=== PATIENT | female | born 1950 | race Caucasian/White ===

== ENCOUNTER 2017-11-14 15:35 | Inpatient (IN) | payer MEDICARE ==
[~2017-11-14] VITALS: Ht 167.6 cm; Wt 94.9 kg
[2017-11-14 15:40] VITALS: BP 152/69; PULSE 96; RESP 16; TEMP 100.6; O2SAT 96
[2017-11-14] MEDS ORDERED: LORA-392 PO (16:17)
[2017-11-14] MEDS ORDERED: SODIUM CHLOR 0.9% 1000 ML INJ 1,000 ML IV ONE (16:45)
[2017-11-14] MEDS ORDERED: MORPHINE SULFATE 4 MG/ML INJ IV PUSH ONE ×2 (16:45→18:00)
[2017-11-14] MEDS ORDERED: ACETAMINOPHEN 325 MG TAB PO ONE (16:45)
[2017-11-14] MEDS ORDERED: ONDANSETRON HCL 4 MG/2 ML VIAL IV PUSH ONE ×2 (16:45→19:00)
--- NOTE | 2017-11-14 16:45 | PD ---
HPI Chief Complaint: Abdominal Pain Time Seen by Provider: 16:29 Travel History International Travel<30 days: No Contact w/Intl Traveler<30days: No Traveled to known affect area: No History of Present Illness HPI 67yo F with PMH of pancreatitis presents to the ED with c/o epigastric abdominal pain since 1:30 today. Said pain radiates to the back like a band. Associated with nausea. Also with intermittent chest pain that is pressure like and associated with sob. Had low grade fever when she got here. Denies any vomiting, dysuria, hematuria, diarrhea, vaginal bleeding or discharge. Pt said she has had multiple episodes of pancreatitis since they perforated her pancreatitis in 1999 during an ERCP and this feels like her pancreatitis. PFSH Past Medical History Anxiety: Yes Cardiovascular Problems: Yes (mitral valve prolapse) Pancreatitis: Yes Tetanus Vaccination: > 5 Years Influenza Vaccination: No Past Surgical History Cholecystectomy: Yes Hysterectomy: Yes Social History Alcohol Use: No Tobacco Use: No Allergies-Medications (Allergen,Severity, Reaction): Coded Allergies: Penicillins (Verified Allergy, Severe, 11/14/17) ciprofloxacin (Verified Allergy, Severe, 11/14/17) joits pain hydromorphone (Verified Allergy, Severe, Nausea/Vomiting, 11/14/17) Reported Meds & Prescriptions Reported Meds & Active Scripts Active Reported Ativan (Lorazepam) 0.5 Mg Tab 0.5 Mg PO Q8H PRN Review of Systems Except as stated in HPI: all other systems reviewed are Neg Physical Exam Narrative GENERAL: 67yo F in moderate distress. SKIN: Focused skin assessment warm/dry. HEAD: Atraumatic. Normocephalic. EYES: Pupils equal and round. No scleral icterus. No injection or drainage. ENT: No nasal bleeding or discharge. Mucous membranes pink and moist. NECK: Trachea midline. No JVD. CARDIOVASCULAR: Regular rate and rhythm. No murmur appreciated. RESPIRATORY: No accessory muscle use. Clear to auscultation. Breath sounds equal bilaterally. GASTROINTESTINAL: Abdomen soft,+TTP epigastric region > ttp RUQ. No rebound tenderness or guarding. BACK: +TTP mid back T6-7. MUSCULOSKELETAL: No obvious deformities. No clubbing. No cyanosis. No edema. NEUROLOGICAL: Awake and alert. No obvious cranial nerve deficits. Motor grossly within normal limits. Normal speech. PSYCHIATRIC: Appropriate mood and affect; insight and judgment normal. Data Data Last Documented VS Vital Signs Date Time Temp Pulse Resp B/P (MAP) Pulse Ox O2 Delivery O2 Flow Rate FiO2 11/14/17 17:17 100.3 82 16 133/61 (85) 97 Room Air Orders Orders Complete Blood Count With Diff (11/14/17 16:35) Comprehensive Metabolic Panel (11/14/17 16:35) Lipase (11/14/17 16:35) Prothrombin Time / Inr (Pt) (11/14/17 16:35) Act Partial Throm Time (Ptt) (11/14/17 16:35) Urinalysis - C+S If Indicated (11/14/17 16:35) Ct Abd/Pel W Iv Contrast(Rout) (11/14/17 16:35) Troponin I (11/14/17 16:35) Chest, Single Ap (11/14/17 ) Blood Culture (11/14/17 16:35) Lactic Acid Sepsis Protocol (11/14/17 16:35) Ondansetron Inj (Zofran Inj) (11/14/17 16:45) Morphine Inj (Morphine Inj) (11/14/17 16:45) Acetaminophen (Tylenol) (11/14/17 16:45) Sodium Chlor 0.9% 1000 Ml Inj (Ns 1000 M (11/14/17 16:45) Iohexol 350 Inj (Omnipaque 350 Inj) (11/14/17 17:39) Electrocardiogram (11/14/17 16:46) Azithromycin (Zithromax) (11/14/17 18:00) Morphine Inj (Morphine Inj) (11/14/17 18:00) Labs Laboratory Tests Test 11/14/17 16:40 White Blood Count 12.8 TH/MM3 Red Blood Count 4.23 MIL/MM3 Hemoglobin 12.9 GM/DL Hematocrit 38.0 % Mean Corpuscular Volume 89.7 FL Mean Corpuscular Hemoglobin 30.5 PG Mean Corpuscular Hemoglobin Concent 34.0 % Red Cell Distribution Width 12.9 % Platelet Count 214 TH/MM3 Mean Platelet Volume 9.5 FL Neutrophils (%) (Auto) 90.1 % Lymphocytes (%) (Auto) 4.8 % Monocytes (%) (Auto) 4.6 % Eosinophils (%) (Auto) 0.1 % Basophils (%) (Auto) 0.4 % Neutrophils # (Auto) 11.5 TH/MM3 Lymphocytes # (Auto) 0.6 TH/MM3 Monocytes # (Auto) 0.6 TH/MM3 Eosinophils # (Auto) 0.0 TH/MM3 Basophils # (Auto) 0.1 TH/MM3 CBC Comment DIFF FINAL Differential Comment Prothrombin Time 10.3 SEC Prothromb Time International Ratio 1.0 RATIO Activated Partial Thromboplast Time 24.6 SEC Blood Urea Nitrogen 13 MG/DL Creatinine 0.89 MG/DL Random Glucose 119 MG/DL Total Protein 6.7 GM/DL Albumin 3.1 GM/DL Calcium Level 8.6 MG/DL Alkaline Phosphatase 88 U/L Aspartate Amino Transf (AST/SGOT) 15 U/L Alanine Aminotransferase (ALT/SGPT) 20 U/L Total Bilirubin 0.6 MG/DL Sodium Level 140 MEQ/L Potassium Level 4.1 MEQ/L Chloride Level 108 MEQ/L Carbon Dioxide Level 26.8 MEQ/L Anion Gap 5 MEQ/L Estimat Glomerular Filtration Rate 63 ML/MIN Lactic Acid Level 1.5 mmol/L Troponin I LESS THAN 0.02 NG/ML Lipase 60728 U/L [facility] Medical Decision Making Medical Screen Exam Complete: Yes Emergency Medical Condition: Yes Interpretation(s) EKG: NSR 74bpm. Normal axis. TWI III. No significant ST segment elevation or depression. Differential Diagnosis Acute pancreatitis vs. acute cholangitis vs. complications from pancreatitis vs. ACS Narrative Course 67yo F with history of pancreatitis here with abdominal pain that feels like her pancreatitis. Pt also with atypical chest pain but will do cardiac work up since pt is 67yo. Labs reviewed, WBC 12.8. H/H normal. Lactic acid normal at 1.5. [place] [address]. CXR showed minimal bibasilar parenchymal changes. Pt said she has slight cough but not much. Pt given azithromycin. CT a/p showed prominent common duct and pancreatic duct extending into the head of pancreas without focal mass. Pt given NS IVF, morphine and zofran which helped the pain a little but it is back. Pt given another dose of morphine and zofran. Discussed with Dr. Montoya and accepted to her service. Diagnosis Primary Impression: Acute pancreatitis Qualified Codes: K85.90 - Acute pancreatitis without necrosis or infection, unspecified Admitting Information Admitting Physician Requests: Admit Kimmy Cook DO November 14, 2017 16:45
[2017-11-14 16:57] VITALS: BP 123/59; PULSE 74; RESP 18; O2SAT 97
[2017-11-14 17:04] LABS: AUTOMATED NEUTROPHIL # 11.5 TH/MM3 (1.8-7.7); BASOPHIL # 0.1 TH/MM3 (0-0.2); BASOPHIL % 0.4 % (0.0-2.0); EOSINOPHIL % 0.1 % (0.0-4.0); HEMOGLOBIN 12.9 GM/DL (11.6-15.3); LYMPH % 4.8 % (9.0-44.0); LYMPHOCYTE # 0.6 TH/MM3 (1.0-4.8); MEAN CELL VOLUME 89.7 FL (80.0-100.0); MEAN CORPUSCULAR HEMOGLOBIN 30.5 PG (27.0-34.0); MEAN PLATELET VOLUME 9.5 FL (7.0-11.0); MONO % 4.6 % (0.0-8.0); MONOCYTE # 0.6 TH/MM3 (0-0.9); NEUT % 90.1 % (16.0-70.0); PLATELET COUNT 214 TH/MM3 (150-450); RED BLOOD COUNT 4.23 MIL/MM3 (4.00-5.30); RED CELL DISTRIBUTION WIDTH 12.9 % (11.6-17.2); WHITE BLOOD COUNT 12.8 TH/MM3 (4.0-11.0)
[2017-11-14 17:14] LABS: CHLORIDE 108 MEQ/L (98-107); SODIUM (NA) 140 MEQ/L (136-145)
[2017-11-14 17:17] VITALS: BP 133/61; PULSE 82; RESP 16; TEMP 100.3; O2SAT 97
[2017-11-14 17:17] LABS: PROTHROMBIN TIME - PATIENT 10.3 SEC (9.8-11.6)
--- NOTE | 2017-11-14 17:17 | RADRPT ---
EXAM DATE/TIME: 11/14/2017 16:56 [facility] COMPARISON: No previous studies available for comparison. INDICATIONS : Chest pain. MEDICAL HISTORY : None. SURGICAL HISTORY : None. ENCOUNTER: Initial ACUITY: 1 day PAIN SCORE: 9/10 LOCATION: Bilateral chest FINDINGS: Minimal bibasilar or parenchymal changes. The heart and pulmonary vascularity are normal. The portion of the bony skeleton visualized is unremarkable. CONCLUSION: Minimal bibasilar parenchymal changes. Moy Johnson MD FACR on November 14, 2017 at 17:15 Board Certified Radiologist. This report was verified electronically.
[2017-11-14 17:18] LABS: ALBUMIN 3.1 GM/DL (3.4-5.0); BICARBONATE 26.8 MEQ/L (21.0-32.0); CALCIUM 8.6 MG/DL (8.5-10.1); GLUCOSE,RANDOM 119 MG/DL (74-106)
[2017-11-14 17:19] LABS: BLOOD UREA NITROGEN 13 MG/DL (7-18)
[2017-11-14 17:21] LABS: ALT (GPT) 20 U/L (10-53); AST (GOT) 15 U/L (15-37); CREATININE 0.89 MG/DL (0.50-1.00); GLOMERULAR FILTRATION RATE 63 ML/MIN (>89)
[2017-11-14 17:23] LABS: TOTAL BILIRUBIN ADULT 0.6 MG/DL (0.2-1.0); TOTAL PROTEIN 6.7 GM/DL (6.4-8.2)
[2017-11-14 17:24] LABS: ALKALINE PHOSPHATASE 88 U/L (45-117)
[2017-11-14 17:27] LABS: TROPONIN I LESS THAN 0.02 NG/ML (0.02-0.05)
[2017-11-14] MEDS ORDERED: IOHEXOL 350 MG/ML 10 ML VIAL (for RAD DIAG) IVCONTRAST ONE (17:39)
--- NOTE | 2017-11-14 17:47 | RADRPT ---
EXAM DATE/TIME: 11/14/2017 17:29 [facility] COMPARISON: No previous studies available for comparison. INDICATIONS : Epigastric pain. IV CONTRAST: 95 cc Omnipaque 350 (iohexol) IV ORAL CONTRAST: No oral contrast ingested. RADIATION DOSE: 14.95 CTDIvol (mGy) MEDICAL HISTORY : Pancreatitis. Mitral valve prolapse. SURGICAL HISTORY : Cholecystectomy. Hysterectomy. ENCOUNTER: Initial ACUITY: 1 day PAIN SCALE: 6/10 LOCATION: upper quadrant TECHNIQUE: Volumetric scanning of the abdomen and pelvis was performed. Using automated exposure control and ad justment of the mA and/or kV according to patient size, radiation dose was kept as low as reasonably achievable to obtain optimal diagnostic quality images. DICOM format image data is available electro nically for review and comparison. FINDINGS: The lower lungs are clear. Mild fatty replacement of the liver with minimal intrahepatic ductal dilatation and prominent common duct measuring 2 cm. Mild prominent pancreatic duct without definite mass in the head of the pancrea s. Spleen and adrenal glands are unremarkable Symmetrical renal function There is no ascites or adenopathy The pelvis multiple diverticula are evident without diverticulitis or inflammatory changes. There is no ascites or adenopathy. Bone windows reveal only degenerative changes. CONCLUSION: Prominent common duct and pancreatic duct extending into the head of pancreas without focal mass. Co rrelation is suggested I do not see an etiology for the epigastric pain Moy Johnson MD FACR on November 14, 2017 at 17:43 Board Certified Radiologist. This report was verified electronically.
[2017-11-14] MEDS ORDERED: AZITHROMYCIN 250 MG TAB PO ONE (18:00)
[2017-11-14] MEDS ORDERED: SODIUM CHLORIDE 0.9% FLUSH 10 ML FLUSH IV FLUSH PRN (18:15)
[2017-11-14 18:25] VITALS: BP 125/64; PULSE 66; RESP 18; TEMP 99; O2SAT 97
[2017-11-14] MEDS: KETOROLAC TROMETHAMINE 30 MG/ML (IVP) VIAL IVP PRN (19:40)
[2017-11-14] MEDS: LACTATED RINGER'S 1000 ML INJ 1,000 ML IV SCH (19:40)
[2017-11-14 19:55] VITALS: BP 126/61
[2017-11-14 20:00] VITALS: BP 137/90; PULSE 58; RESP 16; TEMP 98; O2SAT 96
[2017-11-14] MEDS: ENOXAPARIN SODIUM 40 MG/0.4 ML SYRINGE SQ SCH (20:31)
[2017-11-14] MEDS: SODIUM CHLORIDE 0.9% FLUSH 10 ML FLUSH IV FLUSH SCH (20:33)
[2017-11-15] VITALS (7 sets, daily range): BP systolic 105–118; BP diastolic 50–57; PULSE 67–103; RESP 16–20; TEMP 98.6–102.2; O2SAT 75–95
[2017-11-15] MEDS: KETOROLAC TROMETHAMINE 30 MG/ML (IVP) VIAL IVP PRN ×4 (00:50→21:41)
[2017-11-15] MEDS: LACTATED RINGER'S 1000 ML INJ 1,000 ML IV SCH ×4 (00:51→21:44)
[2017-11-15] MEDS: ONDANSETRON HCL 4 MG/2 ML VIAL IV PUSH PRN ×3 (00:51→17:14)
[2017-11-15 07:00] LABS: AUTOMATED NEUTROPHIL # 10.3 TH/MM3 (1.8-7.7); BASOPHIL % 0.1 % (0.0-2.0); HEMATOCRIT 34.2 % (35.0-46.0); HEMOGLOBIN 11.4 GM/DL (11.6-15.3); LYMPH % 5.2 % (9.0-44.0); LYMPHOCYTE # 0.6 TH/MM3 (1.0-4.8); MEAN CELL VOLUME 89.6 FL (80.0-100.0); MEAN CORPUSCULAR HEMOGLOBIN 29.8 PG (27.0-34.0); MEAN CORPUSCULAR HGB CONC 33.2 % (32.0-36.0); MEAN PLATELET VOLUME 9.7 FL (7.0-11.0); MONO % 6.2 % (0.0-8.0); MONOCYTE # 0.7 TH/MM3 (0-0.9); NEUT % 88.5 % (16.0-70.0); PLATELET COUNT 181 TH/MM3 (150-450); RED BLOOD COUNT 3.82 MIL/MM3 (4.00-5.30); RED CELL DISTRIBUTION WIDTH 12.9 % (11.6-17.2); WHITE BLOOD COUNT 11.6 TH/MM3 (4.0-11.0)
[2017-11-15] MEDS: SODIUM CHLORIDE 0.9% FLUSH 10 ML FLUSH IV FLUSH SCH ×2 (07:54→21:00)
[2017-11-15] MEDS ORDERED: MORPHINE SULFATE 2 MG/ML SYRINGE IV PUSH PRN (08:00)
--- NOTE | 2017-11-15 08:14 | HHI.HP ---
[facility] Service [place] [facility] Primary Care Physician Non-Staff Admission Diagnosis Acute pancreatitis Diagnoses: (1) Acute pancreatitis Chief Complaint: Abdominal pain Travel History International Travel<30 Days: No Contact w/Intl Traveler <30 Da: No Traveled to Known Affected Are: No Sepsis Criteria SIRS Criteria (2 or more): Temp > 100.9 or < 96.8, Heart rate over 90, WBC > 02615, < 4000 or > 10% bands Sepsis Criteria (SIRS+source): Infect source susp/known Criteria Outcome: Meets sepsis criteria History of Present Illness This is a pleasant 67-year-old female patient with a known medical history of pancreatitis who presented to the ED with complaints of abdominal pain, nausea and vomiting. Patient states her symptoms started yesterday afternoon with her abdominal pain in her left upper quadrant and bandlike across her abdomen as well as radiation up her midsternal chest. Patient does admit to subjective fevers, although she did not check how high it was. Admits to chills as well as intermittent shortness of breath. Does admit to taking Tylenol and Ativan for her symptoms which mildly improved. Patient denies any headache, diarrhea or dysuria. Patient does admit to multiple episodes of pancreatitis several years ago including a perforation in 1999 during the ERCP. Patient's last episode was 2 years ago. Does not follow with a language arts teacher, patient is from [place]. PCP is Dr. Garcia, patient is from [place] [id number]. Supposedly she did have a recent diagnosis of UTI, was never given antibiotics and it cleared on its own reportedly. Patient denies any recent alcohol use, states she did have a birthday alliance party and drank 2 drinks over the weekends. Does not drink frequently, only on special occasions. Review of Systems Constitutional: COMPLAINS OF: Diaphoretic episodes, Fatigue, Fever, Chills, DENIES: Dizziness Eyes: DENIES: Blurred vision, Diplopia Respiratory: COMPLAINS OF: Shortness of breath, DENIES: Cough, Sputum production Past Family Social History Past Medical History History of pancreatitis Anxiety History of mitral valve prolapse Past Surgical History Hysterectomy Cholecystectomy History of right knee repair Reported Medications Active Reported Ativan (Lorazepam) 0.5 Mg Tab 0.5 Mg PO Q8H PRN Allergies: Coded Allergies: Penicillins (Verified Allergy, Severe, 11/14/17) ciprofloxacin (Verified Allergy, Severe, 11/14/17) joits pain hydromorphone (Verified Allergy, Severe, Nausea/Vomiting, 11/14/17) Active Ordered Medications Current Medications Medications (Trade) Dose Ordered Sig/Katerina Route Start Time Stop Time Status Last Admin Lactated Ringer's 1,000 ml @ 125 mls/hr Q8H IV 11/14/17 18:08 11/15/17 00:51 (NS Flush) 2 ml UNSCH PRN IV FLUSH 11/14/17 18:15 (NS Flush) 2 ml BID IV FLUSH 11/14/17 21:00 (Toradol Inj) 30 mg Q6H PRN IVP 11/14/17 18:15 11/19/17 18:14 11/15/17 06:55 (Zofran Inj) 4 mg Q6H PRN IV PUSH 11/14/17 18:15 11/15/17 09:54 (Lovenox Inj) 40 mg Q24H SQ 11/14/17 20:00 11/14/17 20:31 (Tylenol) 650 mg Q4H PRN PO 11/15/17 08:00 11/15/17 08:31 (Morphine Inj) 2 mg Q4H PRN IV PUSH 11/15/17 09:30 11/15/17 09:54 Family History Paternal medical history significant for lung cancer. Mother had CHF and kidney failure. Social History Denies any tobacco abuse. Does admit to occasional alcohol use for special occasions, denies any illicit drug use. Physical Exam Vital Signs Vital Signs Date Time Temp Pulse Resp B/P (MAP) Pulse Ox O2 Delivery O2 Flow Rate FiO2 11/15/17 08:00 102.2 103 19 107/54 (71) 94 11/15/17 00:00 98.6 67 16 118/57 (77) 75 11/14/17 20:00 98.0 58 16 137/90 (106) 96 11/14/17 20:00 96 21 11/14/17 19:55 80 16 126/61 (82) 96 11/14/17 18:25 99.0 66 18 125/64 (84) 97 Room Air 11/14/17 18:20 17 11/14/17 17:17 100.3 82 16 133/61 (85) 97 Room Air 11/14/17 16:59 16 11/14/17 16:57 74 18 123/59 (80) 97 Room Air 11/14/17 15:40 100.6 96 16 152/69 (96) 96 Physical Exam GENERAL: Well-developed, well-nourished patient in NAD. SKIN: Warm and dry. No rash. HEAD: Normocephalic. Atraumatic. EYES: Pupils equal and round. No scleral icterus. No injection or drainage. ENT: No nasal bleeding or discharge. Mucous membranes pink and moist. NECK: Supple. Trachea midline. CARDIOVASCULAR: Regular rate and rhythm. S1, S2 noted. No murmur appreciated. No chest pain to palpation. RESPIRATORY: No accessory muscle use. Clear to auscultation. Breath sounds equal bilaterally. GASTROINTESTINAL: Abdomen soft, nondistended. Hypoactive bowel sounds x4. Mild tenderness to upper left quadrant to palpation. MUSCULOSKELETAL: No obvious deformities. Extremities without clubbing, cyanosis , or edema. NEUROLOGICAL: Awake and alert. No obvious cranial nerve deficits. Motor grossly within normal limits. 5/5 muscle strength in bilateral upper and lower extremities. Normal speech. PSYCHIATRIC: Appropriate mood and affect; insight and judgment normal. Laboratory Laboratory Tests Test 11/14/17 16:40 11/15/17 06:15 White Blood Count 12.8 11.6 Red Blood Count 4.23 3.82 Hemoglobin 12.9 11.4 Hematocrit 38.0 34.2 Mean Corpuscular Volume 89.7 89.6 Mean Corpuscular Hemoglobin 30.5 29.8 Mean Corpuscular Hemoglobin Concent 34.0 33.2 Red Cell Distribution Width 12.9 12.9 Platelet Count 214 181 Mean Platelet Volume 9.5 9.7 Neutrophils (%) (Auto) 90.1 88.5 Lymphocytes (%) (Auto) 4.8 5.2 Monocytes (%) (Auto) 4.6 6.2 Eosinophils (%) (Auto) 0.1 0.0 Basophils (%) (Auto) 0.4 0.1 Neutrophils # (Auto) 11.5 10.3 Lymphocytes # (Auto) 0.6 0.6 Monocytes # (Auto) 0.6 0.7 Eosinophils # (Auto) 0.0 0.0 Basophils # (Auto) 0.1 0.0 CBC Comment DIFF FINAL AUTO DIFF Differential Comment AUTO DIFF CONFIRMED Prothrombin Time 10.3 Prothromb Time International Ratio 1.0 Activated Partial Thromboplast Time 24.6 Blood Urea Nitrogen 13 Creatinine 0.89 Random Glucose 119 Total Protein 6.7 Albumin 3.1 Calcium Level 8.6 Alkaline Phosphatase 88 Aspartate Amino Transf (AST/SGOT) 15 Alanine Aminotransferase (ALT/SGPT) 20 Total Bilirubin 0.6 Sodium Level 140 Potassium Level 4.1 Chloride Level 108 Carbon Dioxide Level 26.8 Anion Gap 5 Estimat Glomerular Filtration Rate 63 Lactic Acid Level 1.5 Troponin I LESS THAN 0.02 Triglycerides Level 111 Lipase 05068 Platelet Estimate NORMAL Platelet Morphology Comment NORMAL Date/Time Source Procedure Growth Status 11/14/17 16:40 Blood Peripheral Aerobic Blood Culture Pending Received 11/14/17 16:40 Blood Peripheral Anaerobic Blood Culture Pending Received Result Diagram: 11/15/17 0615 11/14/17 1640 Imaging Last Impressions Abdomen/Pelvis CT 11/14/17 1635 Signed Impressions: Service Date/Time: Tuesday, November 14, 2017 17:29 - CONCLUSION: Prominent common duct and pancreatic duct extending into the head of pancreas without focal mass. Correlation is suggested I do not see an etiology for the epigastric pain Moy Johnson MD FACR Chest X-Ray 11/14/17 0000 Signed Impressions: Service Date/Time: Tuesday, November 14, 2017 16:56 - CONCLUSION: Minimal bibasilar parenchymal changes. Moy Johnson MD FACR Septic Shock Reassessment Septic shock perfusion: reassessment completed Caprini VTE Risk Assessment Caprini VTE Risk Assessment: Mod/High Risk (score >= 2) Caprini Risk Assessment Model Point Value = 1 Point Value = 2 Point Value = 3 Point Value = 5 Age 41-60 Minor surgery BMI > 25 kg/m2 Swollen legs Varicose veins or History of unexplained or recurrent spontaneous Oral contraceptives or hormone replacement Sepsis (< 1 month) Serious lung disease, including pneumonia (< 1 month) Abnormal pulmonary function Acute myocardial infarction Congestive heart failure (< 1 month) History of inflammatory bowel disease Medical patient at bed rest Age 61-74 Arthroscopic surgery Major open surgery (> 45 min) Laparoscopic surgery (> 45 min) Malignancy Confined to bed (> 72 hours) Immobilizing plaster cast Central venous access Age >= 75 History of VTE Family history of VTE Factor V Leiden Prothrombin [id number] Lupus anticoagulant Anticardiolipin antibodies Elevated serum homocysteine Heparin-induced thrombocytopenia Other congenital or acquired thrombophilia Stroke (< 1 month) Elective arthroplasty Hip, pelvis, or leg fracture Acute spinal cord injury (< 1 month) Prophylaxis Regimen Total Risk Factor Score Risk Level Prophylaxis Regimen 0-1 Low Early ambulation 2 Moderate Order ONE of the following: *Sequential Compression Device (SCD) *Heparin 5000 units SQ BID 3-4 Higher Order ONE of the following medications: *Heparin 5000 units SQ TID *Enoxaparin/Lovenox 40 mg SQ daily (WT < 150 kg, CrCl > 30 mL/min) *Enoxaparin/Lovenox 30 mg SQ daily (WT < 150 kg, CrCl > 10-29 mL/min) *Enoxaparin/Lovenox 30 mg SQ BID (WT < 150 kg, CrCl > 30 mL/min) AND/OR *Sequential Compression Device (SCD) 5 or more Highest Order ONE of the following medications: *Heparin 5000 units SQ TID (Preferred with Epidurals) *Enoxaparin/Lovenox 40 mg SQ daily (WT < 150 kg, CrCl > 30 mL/min) *Enoxaparin/Lovenox 30 mg SQ daily (WT < 150 kg, CrCl > 10-29 mL/min) *Enoxaparin/Lovenox 30 mg SQ BID (WT < 150 kg, CrCl > 30 mL/min) AND *Sequential Compression Device (SCD) Assessment and Plan Problem List: (1) Acute pancreatitis ICD Code: K85.90 - Acute pancreatitis without necrosis or infection, unspecified Status: Acute Plan: Abdominal pelvis CT reviewed showing no focal mass with the prominent common duct and pancreatic duct. Lipase 13,000 on presentation. With associated abdominal pain, nausea and vomiting. Lipase trending down. Pain is still present, allergic to hydromorphone, morphine IV available for breakthrough pain. Toradol scheduled. Continue IV fluids. Attempt clear liquid diet as tolerated. (2) Pneumonia ICD Code: J18.9 - Pneumonia, unspecified organism Plan: Patient with fever 102.2. Blood cultures pending follow. With leukocytosis mild left shift. Meet sepsis criteria suspect secondary to pneumonia. We will also order UA, follow. Lactic acid 1.5. Acetaminophen available fever. Was given 1 L NS bolus in ED. Continue IV fluids. Start on azithromycin and ceftriaxone. Supplemental O2 as needed, patient stable on room air. DVT prophylaxis: SCDs. Lovenox. Physician Certification 2 Midnight Certification Type: Admission for Inpatient Services Order for Inpatient Services The services are ordered in accordance with Medicare regulations or non- Medicare payer requirements, as applicable. In the case of services not specified as inpatient-only, they are appropriately provided as inpatient services in accordance with the 2-midnight benchmark. Estimated LOS (days): 3 3 days is the estimated time the patient will need to remain in the hospital, assuming treatment plan goals are met and no additional complications. Post-Hospital Plan: Home Problem Qualifiers (1) Acute pancreatitis: Qualified Codes: K85.90 - Acute pancreatitis without necrosis or infection, unspecified Trinity Cooney November 15, 2017 08:14
[2017-11-15] MEDS: ACETAMINOPHEN 325 MG TAB PO PRN (08:31)
[2017-11-15] MEDS: MORPHINE SULFATE 4 MG/ML INJ IV PUSH PRN ×2 (09:54→17:46)
[2017-11-15] MEDS: cefTRIAXone INJ 1,000 MG in SODIUM CHLORIDE 0.9% INJ 100 ML IV SCH (12:59)
[2017-11-15 13:37] LABS: BLOOD, URINE NEG (NEG); GLUCOSE,URINE NEG (NEG); KETONE, URINE TRACE mg/dL (NEG); NITRITE,URINE NEG (NEG); PH, URINE 5.5 (5.0-8.5); URINE COLOR YELLOW (YELLW/STRAW); URINE LEUKOCYTE ESTERASE NEG (NEG)
[2017-11-15 13:45] LABS: BILIRUBIN, URINE NEG (NEG)
[2017-11-15 13:49] LABS: AMORPHOUS SEDIMENT, URINE FEW; SQUAMOUS EPITHELIAL CELL URINE 0-3 /hpf (0-5); WBC, URINE 0-2 /hpf (0-5)
--- NOTE | 2017-11-15 14:01 | EKG ---
Date Performed: 11/14/2017 Time Performed: 16:46:10 PTAGE: 67 years EKG: Sinus rhythm LOW QRS VOLTAGE IN PRECORDIAL LEADS BORDERLINE ECG NO PREVIOUS TRACING DOCTOR: Nazario Nance Interpretating Date/Time 11/15/2017 14:00:24
[2017-11-15] MEDS: RESP: ALBUTEROL 2.5 MG/IPRATROPIUM 0.5 MG NEB (SCH) NEB ×2 (14:27→19:23)
[2017-11-15] MEDS: AZITHROMYCIN INJ 500 MG in SODIUM CHLOR 0.9% 250 ML INJ 250 ML IV SCH (17:13)
[2017-11-15] MEDS: ENOXAPARIN SODIUM 40 MG/0.4 ML SYRINGE SQ SCH (21:40)
[2017-11-16] VITALS (11 sets, daily range): BP systolic 102–135; BP diastolic 52–64; PULSE 82–111; RESP 16–21; TEMP 98.4–101.4; O2SAT 90–98
[2017-11-16] MEDS: ACETAMINOPHEN 325 MG TAB PO PRN (04:09)
[2017-11-16] MEDS: KETOROLAC TROMETHAMINE 30 MG/ML (IVP) VIAL IVP PRN ×3 (04:10→16:22)
[2017-11-16] MEDS: RESP: ALBUTEROL 2.5 MG/IPRATROPIUM 0.5 MG NEB (SCH) NEB ×3 (07:22→19:38)
[2017-11-16 08:24] LABS: AUTOMATED NEUTROPHIL # 13.7 TH/MM3 (1.8-7.7); BASOPHIL % 0.3 % (0.0-2.0); EOSINOPHIL % 0.1 % (0.0-4.0); HEMATOCRIT 31.5 % (35.0-46.0); HEMOGLOBIN 10.3 GM/DL (11.6-15.3); LYMPH % 5.5 % (9.0-44.0); LYMPHOCYTE # 0.8 TH/MM3 (1.0-4.8); MEAN CORPUSCULAR HEMOGLOBIN 29.5 PG (27.0-34.0); MEAN CORPUSCULAR HGB CONC 32.8 % (32.0-36.0); MEAN PLATELET VOLUME 10.2 FL (7.0-11.0); MONO % 5.9 % (0.0-8.0); MONOCYTE # 0.9 TH/MM3 (0-0.9); NEUT % 88.2 % (16.0-70.0); PLATELET COUNT 165 TH/MM3 (150-450); RED CELL DISTRIBUTION WIDTH 12.9 % (11.6-17.2); WHITE BLOOD COUNT 15.4 TH/MM3 (4.0-11.0)
[2017-11-16 08:39] LABS: CALCIUM 8.1 MG/DL (8.5-10.1)
[2017-11-16 08:40] LABS: BICARBONATE 26.4 MEQ/L (21.0-32.0)
[2017-11-16 08:43] LABS: CREATININE 1.2 MG/DL (0.50-1.00)
[2017-11-16] MEDS: SODIUM CHLORIDE 0.9% FLUSH 10 ML FLUSH IV FLUSH SCH ×2 (09:05→21:38)
[2017-11-16] MEDS: LACTATED RINGER'S 1000 ML INJ 1,000 ML IV SCH ×3 (09:16→23:18)
[2017-11-16 09:20] LABS: TOXIC GRANULATION 1+ (NORMAL)
--- NOTE | 2017-11-16 09:48 | HHI.PR ---
Subjective Remarks Follow-up acute pancreatitis pneumonia. Patient seen and examined, lying in bed with continued complaints of pain. Patient is afraid to take IV narcotics, states she is afraid to get addicted. Patient encouraged to have ordered medication if needed. Will assess response. Continued fevers overnight TMAX 101.4. Acetaminophen given. Blood cultures negative to date. Objective Vitals Vital Signs Date Time Temp Pulse Resp B/P (MAP) Pulse Ox O2 Delivery O2 Flow Rate FiO2 11/16/17 07:24 92 21 11/16/17 04:00 101.4 103 21 113/59 (77) 90 11/16/17 00:00 100.1 95 18 103/55 (71) 90 11/15/17 20:00 100.9 86 20 109/52 (71) 93 11/15/17 19:23 93 21 11/15/17 15:53 99.1 76 19 105/50 (68) 95 11/15/17 12:00 100.0 89 20 106/56 (73) 90 11/15/17 11:34 93 I/O 11/15/17 11/15/17 11/15/17 11/16/17 11/16/17 11/16/17 07:00 15:00 23:00 07:00 15:00 23:00 Intake Total 0 ml 1200 ml 1000 ml 480 ml Output Total 550 ml Balance 0 ml 1200 ml 450 ml 480 ml Intake Oral 0 ml 0 ml 750 ml 480 ml IV Total 1200 ml 250 ml Output Urine Total 550 ml # Voids 2 3 # Bowel Movements 0 Result Diagram: 11/16/17 0635 11/16/17 0635 Imaging Last Impressions Liver Ultrasound 11/16/17 0000 Signed Impressions: Service Date/Time: Thursday, November 16, 2017 10:37 - CONCLUSION: 1. Dilated main pancreatic duct measuring up to 9 mm. No obstructing mass is clearly seen on today's examination or the prior CT but the duct dilatation extends to the pancreatic head. Consider further evaluation for an occult mass in the pancreatic head once condition permits. Noninvasively this could be obtained with pancreas protocol MRI with and without intravenous contrast to include MRCP images. 2. Dilated common bile duct in this patient post cholecystectomy. The common duct does taper distally on the recent CT without a distal obstructing process identified. 3. There is trace perihepatic free fluid and a small left pleural effusion is visualized. Rashel Lopez MD Chest CT 11/16/17 0000 Signed Impressions: Service Date/Time: Thursday, November 16, 2017 11:33 - CONCLUSION: 1. Moderate severity atelectasis/consolidation at the dependent portions of lower lobes and right middle lobe. 2. Small pleural effusions. 3. Increased peripancreatic edema. Consistent with acute pancreatitis Rex Galeas MD Abdomen/Pelvis CT 11/14/17 1635 Signed Impressions: Service Date/Time: Tuesday, November 14, 2017 17:29 - CONCLUSION: Prominent common duct and pancreatic duct extending into the head of pancreas without focal mass. Correlation is suggested I do not see an etiology for the epigastric pain Moy Johnson MD FACR Chest X-Ray 11/14/17 0000 Signed Impressions: Service Date/Time: Tuesday, November 14, 2017 16:56 - CONCLUSION: Minimal bibasilar parenchymal changes. Moy Johnson MD FACR Objective Remarks GENERAL: Well-developed, well-nourished patient with complaint of diffuse abdominal pain mindi in midepigastric area. SKIN: Warm and dry. No rash. HEAD: Normocephalic. Atraumatic. EYES: Pupils equal and round. No scleral icterus. No injection or drainage. ENT: No nasal bleeding or discharge. Mucous membranes pink and moist. NECK: Supple. Trachea midline. CARDIOVASCULAR: Regular rate and rhythm. S1, S2 noted. No murmur appreciated. RESPIRATORY: No accessory muscle use. Clear to auscultation. Breath sounds equal bilaterally. GASTROINTESTINAL: Abdomen soft, nondistended. Normoactive bowel sounds x4. Tender to palpation in upper right and left quadrants. MUSCULOSKELETAL: No obvious deformities. Extremities without clubbing, cyanosis , or edema. NEUROLOGICAL: Awake and alert. No obvious cranial nerve deficits. Motor grossly within normal limits. 5/5 muscle strength in bilateral upper and lower extremities. Normal speech. PSYCHIATRIC: Appropriate mood and affect; insight and judgment normal. A/P Problem List: (1) Acute pancreatitis ICD Code: K85.90 - Acute pancreatitis without necrosis or infection, unspecified Status: Acute Plan: With associated abdominal pain, nausea and vomiting. Abdominal pelvis CT reviewed showing no focal mass with the prominent common duct and pancreatic duct. Lipase 13,000 on presentation, trending down. Pain is still present, allergic to hydromorphone, morphine IV available for breakthrough pain. Toradol scheduled. Continue IV fluids. Patient did not tolerate clear liquid diet, keep NPO for now. (2) Pneumonia ICD Code: J18.9 - Pneumonia, unspecified organism Plan: Patient with fever 102.2. TMAX 101.4 overnight. Blood cultures negative to date. Meets sepsis criteria (febrile, tachycardia and leukocytosis) suspect secondary to pneumonia. UA negative. Lactic acid 1.5. Acetaminophen available fever. Was given 1 L NS bolus in ED. Continue IV fluids. Started on azithromycin and ceftriaxone. Change ceftriaxone to cefepime for more gram negative coverage. Consult GI for further input and recommendations. Supplemental O2 as needed, patient stable on room air. DVT prophylaxis: SCDs. Lovenox. Problem Qualifiers (1) Acute pancreatitis: Qualified Codes: K85.90 - Acute pancreatitis without necrosis or infection, unspecified Trinity Cooney November 16, 2017 09:48
--- NOTE | 2017-11-16 12:03 | RADRPT ---
EXAM DATE/TIME: 11/16/2017 10:37 [facility] COMPARISON: CT ABDOMEN & PELVIS W CONTRAST, November 14, 2017, 17:29. INDICATIONS : Pain. MEDICAL HISTORY : Pancreatitis. Mitral valve prolapse. SURGICAL HISTORY : Hysterectomy. Cholecystectomy. ENCOUNTER: Subsequent ACUITY: 2 days PAIN SCORE: 8/10 LOCATION: Bilateral upper quadrant MEASUREMENTS: LIVER: 16.7 cm length COMMON DUCT: 11 mm RIGHT KIDNEY: 10.2 x 5.8 x 5.4 cm SPLEEN: 9.1 cm length FINDINGS: LIVER: Normal echotexture without focal lesion. There is trace perihepatic free fluid. COMMON DUCT: No intraluminal mass or stone visualized. GALLBLADDER: Surgically absent. PANCREAS: There is dilatation of the main pancreatic duct measuring up to 9 mm. Prior study demonstrated the du ct dilatation to extend to the pancreatic head and peripancreatic inflammatory changes were present. RIGHT KIDNEY: No hydronephrosis, stone or mass. SPLEEN: No focal lesion. There is a left pleural effusion. CONCLUSION: 1. Dilated main pancreatic duct measuring up to 9 mm. No obstructing mass is clearly seen on today's examination or the prior CT but the duct dilatation extends to the pancreatic head. Consider further evaluation for an occult mass in the pancreatic head once condition permits. Noninvasively this could be obtained with pancreas protocol MRI with and without intravenous contrast to include MRCP images. 2. Dilated common bile duct in this patient post cholecystectomy. The common duct does taper distally on the recent CT without a distal obstructing process identified. 3. There is trace perihepatic free fluid and a small left pleural effusion is visualized. Rashel Lopez MD on November 16, 2017 at 11:45 Board Certified Radiologist. This report was verified electronically.
[2017-11-16] MEDS ORDERED: IOHEXOL 350 MG/ML 10 ML VIAL (for RAD DIAG) IVCONTRAST ONE (12:41)
--- NOTE | 2017-11-16 13:17 | RADRPT ---
EXAM DATE/TIME: 11/16/2017 11:33 [facility] COMPARISON: CT ABDOMEN & PELVIS W CONTRAST, November 14, 2017, 17:29. CHEST SINGLE AP, November 14, 2017, 16:56. INDICATIONS : Abnormal chest xray. IV CONTRAST: 65 cc Omnipaque 350 (iohexol) IV RADIATION DOSE: 12.68 CTDIvol (mGy) MEDICAL HISTORY : Pancreatitis. Mitral valve prolapse. SURGICAL HISTORY : Cholecystectomy. Hysterectomy. ENCOUNTER: Subsequent ACUITY: 2 days PAIN SCALE: 0/10 LOCATION: chest TECHNIQUE: Volumetric scanning of the chest was performed. Using automated exposure control and adjustment of t he mA and/or kV according to patient size, radiation dose was kept as low as reasonably achievable to obtain optimal diagnostic quality images. DICOM format image data is available electronically for review and comparison. Follow-up recommendations for detected pulmonary nodules are based at a minimum on nodule size and pa tient risk factors according to Fleischner Society Guidelines. FINDINGS: LUNGS: Moderate severity confluent parenchymal opacity within portions of the lower lobes and involving the right middle lobe posteriorly. Findings indicate atelectasis/consolidation. PLEURA: Small bilateral pleural effusions. MEDIASTINUM: Coronary artery calcifications. Thoracic aorta diameter within normal limits. No enlarged mediastinal lymph nodes. AXILLAE: Within normal limits. No lymphadenopathy. SKELETAL: Within normal limits for patient age. MISCELLANEOUS: Hepatic steatosis. Increased peripancreatic edema. Consistent with acute pancreatitis. CONCLUSION: 1. Moderate severity atelectasis/consolidation at the dependent portions of lower lobes and right mid dle lobe. 2. Small pleural effusions. 3. Increased peripancreatic edema. Consistent with acute pancreatitis Rex Galeas MD on November 16, 2017 at 13:11 Board Certified Radiologist. This report was verified electronically.
[2017-11-16] MEDS: MORPHINE SULFATE 4 MG/ML INJ IV PUSH PRN ×2 (13:25→18:46)
[2017-11-16] MEDS: cefTRIAXone INJ 1,000 MG in SODIUM CHLORIDE 0.9% INJ 100 ML IV SCH (13:25)
[2017-11-16] MEDS: CEFEPIME INJ 2,000 MG in SODIUM CHLORIDE 0.9% INJ 100 ML IV SCH ×2 (14:23→21:38)
[2017-11-16] MEDS: AZITHROMYCIN INJ 500 MG in SODIUM CHLOR 0.9% 250 ML INJ 250 ML IV SCH (18:03)
--- NOTE | 2017-11-16 19:30 | MB ---
cc: Fabby Wu MD DATE: 11/16/2017 REFERRING PHYSICIAN: Tom Pope DO REASON FOR CONSULTATION: Pancreatitis. HISTORY OF PRESENT ILLNESS: Ms. Cabrera is a pleasant 67-year-old lady who came to the emergency room with complaints of abdominal pain, nausea and vomiting, workup suggesting pancreatitis. The patient stated she had the first attack of pancreatitis was back in 1999 after ERCP with ,what appeared to be a sphincter of Oddi manometry. She stated that she initially had a cholecystectomy. Postop, she continued to have abdominal discomfort and apparently elevated liver enzymes. At that time, recommendation to have an ERCP with sphincter of Oddi manometry was made. The patient had ERCP and apparently, she had a perforation during the procedure. She had post-ERCP pancreatitis and spent approximately 2 months in the hospital ,recovering from it. Since 1999, she had repeated episode of pancreatitis every 1-2 years. She refused to have a repeat ERCP. She may have had an endoscopic ultrasound, but she is not quite sure. She had seen a specialist at a tertiary center. She was recommended stent placement, but she refused due to fear of possible recurrent pancreatitis. She does not have the records with her. We will try to obtain previous records. Her last attack of pancreatitis was 2 years ago. She stated that this current one is the worst episode she ever had. She denies any alcohol or use of any other medications. She had a UTI a few weeks ago, but she was never given an antibiotic. She denies any fever, chills, weight loss or weight gain. Unclear if she was ever tested for autoimmune pancreatitis or if she ever had genetic testing for inherited pancreatitis. PAST MEDICAL HISTORY: Pancreatitis, anxiety, mitral valve prolapse. PAST SURGICAL HISTORY: Cholecystectomy, surgery was performed for dysfunctional gallbladder, hysterectomy, right knee repair. MEDICATIONS: Ativan. ALLERGIES: PENICILLIN, CIPRO, HYDROMORPHONE. FAMILY HISTORY: No family history of colon cancer or any other GI pathology. REVIEW OF SYSTEMS: CONSTITUTIONAL: She denies any fever, chills, weight gain or weight loss. ENT: No alteration in baseline hearing or visual acuity. PULMONARY: Denies any chest pain, shortness of breath. GASTROINTESTINAL: As above. GENITOURINARY: Denies dysuria, hematuria. HEMATOLOGICAL: No history of anemia or bleeding disorder. SKIN: No alteration of baseline skin lesion. NEUROLOGIC: No history of TIA or CVA kind of symptoms. PHYSICAL EXAMINATION: GENERAL: She is sitting comfortable in bed, in no acute distress. VITAL SIGNS: Temperature 99.7, pulse 60, blood pressure 133/64, pulse oximetry 93. HEENT: PERRLA. NECK: No JVD. No lymphadenopathy. CHEST: Clear to auscultation and palpation. CARDIOVASCULAR: S1, S2. No murmur. ABDOMEN: Soft, tender in the epigastrium. NEUROLOGIC: Awake, alert, oriented x 3. No focal signs identified. LABORATORY AND DIAGNOSTIC DATA: Her hemoglobin on admission was 12.9, currently 10.3, dropped gradually. White count was 12.8, currently 15.4. Platelets 165. PT, INR normal. Her chemistry was suggestive of a lipase at 13,000 upon admission, currently 5866. Liver enzymes were normal. The patient had abdominal CT, which was suggestive of prominent common duct and pancreatic duct extending into the head of the pancreas without focal mass. Also, she had liver ultrasound, which was suggestive of dilated pancreatic duct, which measures 9 mm. No obstructing mass is clearly seen on today's examination. Further evaluation for occult mass in the pancreatic head once condition permits. Dilated common bile duct, trace hepatic free fluid, small left pleural effusion. The patient had a CT chest, which showed moderate severity atelectasis, consolidation in the dependent portion of the lower lobes, small pleural effusion, increased peripancreatic edema consistent with acute pancreatitis. IMPRESSION: Ms. Cabrera is a pleasant 67-year-old lady with recurrent pancreatitis, unclear etiology, possible sphincter of Oddi dysfunction, ampullary stenosis, clinically improving. Abnormal CT, needs to rule out periampullary lesion, doubt based on history and current imaging. RECOMMENDATIONS: Obtain old records if possible. Clear liquid diet-If improvement in her clinical status, MRCP If this is nondiagnostic, consider MRI abdomen and EUS. The patient is quite reluctant to have any invasive procedure that will include ERCP or even EUS. Supportive care. Avoid hepatotoxics and alcohol. We are going to also send tumor markers. Thank you for referring her to our office for consultation. Fabby Wu MD BSB/SB , 05:16 PM , 07:29 PM MIKA
[2017-11-16] MEDS: ENOXAPARIN SODIUM 40 MG/0.4 ML SYRINGE SQ SCH (21:38)
[2017-11-17] VITALS (7 sets, daily range): BP systolic 114–150; BP diastolic 55–86; PULSE 81–112; RESP 15–20; TEMP 97.8–101.3; O2SAT 90–95
[2017-11-17 00:34] LABS: CA 19-9 90.6 U/ML (0.0-35.0)
[2017-11-17] MEDS: ONDANSETRON HCL 4 MG/2 ML VIAL IV PUSH PRN ×2 (05:11→18:35)
[2017-11-17] MEDS: MORPHINE SULFATE 4 MG/ML INJ IV PUSH PRN ×3 (05:11→18:36)
[2017-11-17] MEDS: CEFEPIME INJ 2,000 MG in SODIUM CHLORIDE 0.9% INJ 100 ML IV SCH ×3 (05:11→20:06)
[2017-11-17] MEDS: RESP: ALBUTEROL 2.5 MG/IPRATROPIUM 0.5 MG NEB (SCH) NEB ×3 (07:28→20:19)
[2017-11-17] MEDS: ACETAMINOPHEN 325 MG TAB PO PRN ×2 (09:25→20:06)
[2017-11-17] MEDS: SODIUM CHLORIDE 0.9% FLUSH 10 ML FLUSH IV FLUSH SCH ×2 (09:26→20:03)
--- NOTE | 2017-11-17 09:38 | HHI.PR ---
Subjective Remarks Follow-up acute pancreatitis and pneumonia. Patient seen and examined, has been at bedside and updated. Patient does complain of continued abdominal pain , although is relieved with IV narcotics. Patient still with continued complaints of abdominal pain with clear liquid intake. We will continue to monitor. Patient to MRCP today. Gastroenterology following. Continue T-max fever 101.3. IV antibiotics. Watch cultures. Awaiting labs today. Objective Vitals Vital Signs Date Time Temp Pulse Resp B/P (MAP) Pulse Ox O2 Delivery O2 Flow Rate FiO2 11/17/17 07:46 101.3 97 19 144/70 (94) 95 11/17/17 07:32 94 Nasal Cannula 2.00 11/17/17 00:00 99.9 98 20 114/56 (75) 90 11/16/17 20:00 99.2 97 20 121/58 (79) 98 11/16/17 19:50 98 Nasal Cannula 2.00 11/16/17 19:38 90 21 11/16/17 17:34 18 11/16/17 16:00 98.4 111 16 135/62 (86) 93 11/16/17 13:00 18 11/16/17 12:00 99.7 89 16 133/64 (87) 93 I/O 11/16/17 11/16/17 11/16/17 11/17/17 11/17/17 11/17/17 07:00 15:00 23:00 07:00 15:00 23:00 Intake Total 480 ml 100 ml 480 ml 480 ml 0 ml Output Total 1000 ml Balance 480 ml 100 ml -520 ml 480 ml 0 ml Intake Oral 480 ml 480 ml 480 ml 0 ml IV Total 100 ml Output Urine Total 1000 ml # Voids 3 3 3 # Bowel Movements 0 0 3 Result Diagram: 11/16/17 0635 11/16/17 0635 Imaging Last Impressions Liver Ultrasound 11/16/17 0000 Signed Impressions: Service Date/Time: Thursday, November 16, 2017 10:37 - CONCLUSION: 1. Dilated main pancreatic duct measuring up to 9 mm. No obstructing mass is clearly seen on today's examination or the prior CT but the duct dilatation extends to the pancreatic head. Consider further evaluation for an occult mass in the pancreatic head once condition permits. Noninvasively this could be obtained with pancreas protocol MRI with and without intravenous contrast to include MRCP images. 2. Dilated common bile duct in this patient post cholecystectomy. The common duct does taper distally on the recent CT without a distal obstructing process identified. 3. There is trace perihepatic free fluid and a small left pleural effusion is visualized. Rashel Lopez MD Chest CT 11/16/17 0000 Signed Impressions: Service Date/Time: Thursday, November 16, 2017 11:33 - CONCLUSION: 1. Moderate severity atelectasis/consolidation at the dependent portions of lower lobes and right middle lobe. 2. Small pleural effusions. 3. Increased peripancreatic edema. Consistent with acute pancreatitis Rex Galeas MD Abdomen/Pelvis CT 11/14/17 1635 Signed Impressions: Service Date/Time: Tuesday, November 14, 2017 17:29 - CONCLUSION: Prominent common duct and pancreatic duct extending into the head of pancreas without focal mass. Correlation is suggested I do not see an etiology for the epigastric pain Moy Johnson MD FACR Chest X-Ray 11/14/17 0000 Signed Impressions: Service Date/Time: Tuesday, November 14, 2017 16:56 - CONCLUSION: Minimal bibasilar parenchymal changes. Moy Johnson MD FACR Objective Remarks GENERAL: Well-developed, well-nourished patient with abdominal pain to palpation SKIN: Warm and dry. No rash. HEAD: Normocephalic. Atraumatic. EYES: Pupils equal and round. No scleral icterus. No injection or drainage. ENT: No nasal bleeding or discharge. Mucous membranes pink and moist. NECK: Supple. Trachea midline. CARDIOVASCULAR: Regular rate and rhythm. S1, S2 noted. No murmur appreciated. RESPIRATORY: No accessory muscle use. Clear to auscultation. Breath sounds equal bilaterally. GASTROINTESTINAL: Abdomen soft, nondistended. Normoactive bowel sounds x4. Tender to palpation in upper right and left quadrants. MUSCULOSKELETAL: No obvious deformities. Extremities without clubbing, cyanosis. Bilateral lower extremity trace edema. NEUROLOGICAL: Awake and alert. No obvious cranial nerve deficits. Motor grossly within normal limits. 5/5 muscle strength in bilateral upper and lower extremities. Normal speech. PSYCHIATRIC: Appropriate mood and affect; insight and judgment normal. A/P Problem List: (1) Acute pancreatitis ICD Code: K85.90 - Acute pancreatitis without necrosis or infection, unspecified Status: Acute (2) Pneumonia ICD Code: J18.9 - Pneumonia, unspecified organism Assessment and Plan This is a pleasant 67-year-old female patient with a known medical history of pancreatitis who presented to the ED with complaints of abdominal pain, nausea and vomiting. Acute pancreatitis unknown etiology with complaints of diffuse abdominal pain, nausea and vomiting upon presentation - Lipase 13,000 on presentation. Trending downward. Liver enzymes within normal limits. - Abdomen/pelvis CT reviewed showing prominent common duct and pancreatic duct extending to the head of the pancreas without focal mass. - Attempted p.o. intake, patient still with complaints of abdominal pain and nausea. Advance as tolerated. - Gastroenterology consulted, appreciate input recommendations. Rule out sphincter of Oddi dysfunction versus ampullary stenosis versus periampullary lesion malignancy - Awaiting records from previous hospitalizations and treatment from [facility] [place]. - Plan for MRCP today. Continue to follow. Patient is reluctant to move forward if ERCP is needed. Tumor markers ordered and pending. Follow. - Pain control with IV narcotics as needed for breakthrough pain. Ketorolac scheduled. Zofran as needed for nausea. - Continue IV fluids patient is not tolerating p.o. intake at this time. Ensure hydration. - Supportive care. Avoid hepatotoxins and alcohol. Community acquired pneumonia with hypoxia and initial need for supplemental O2 - Met sepsis criteria with tachycardia, fever, leukocytosis with mild left band shift. - Chest CT reviewed showing moderate severity atelectasis/consolidation of the dependent portions of the lower lobes and right middle lobe. Small pleural effusions. - Continued fever. Acetaminophen as needed. - UA negative. Legionella negative. Blood cultures negative to date. Continue to follow growth. Lactic acid 1.5. - Supplemental O2 as needed, patient is comfortable on room air. Oxygen saturations 95% this morning. Continue to monitor. Duo nebs scheduled and as needed for shortness of breath. - Was initially placed on azithromycin and ceftriaxone. Ceftriaxone changed to cefepime for more broad gram-negative coverage for GI. Added lactobacillus. DVT prophylaxis: SCDs. Lovenox. Problem Qualifiers (1) Acute pancreatitis: Qualified Codes: K85.90 - Acute pancreatitis without necrosis or infection, unspecified Trinity Cooney November 17, 2017 09:38
[2017-11-17] MEDS ORDERED: SENNOSIDES 8.6 MG TAB PO PRN (09:45)
[2017-11-17] MEDS ORDERED: BISACODYL 10 MG SUPP RECTAL PRN (09:45)
[2017-11-17] MEDS ORDERED: MAGNESIUM HYDROXIDE SUSP 30 ML CUP PO PRN (09:45)
[2017-11-17] MEDS ORDERED: LACTULOSE SYRUP 20 GM/30 ML CUP PO PRN (09:45)
[2017-11-17] MEDS ORDERED: LORazepam 2 MG/ML VIAL IM ONE (10:15)
[2017-11-17] MEDS: LACTATED RINGER'S 1000 ML INJ 1,000 ML IV SCH ×2 (10:35→20:06)
[2017-11-17 10:51] LABS: BASOPHIL % 0.3 % (0.0-2.0); EOSINOPHIL # 0.1 TH/MM3 (0-0.4); EOSINOPHIL % 0.6 % (0.0-4.0); HEMATOCRIT 31.9 % (35.0-46.0); HEMOGLOBIN 10.4 GM/DL (11.6-15.3); LYMPH % 4.6 % (9.0-44.0); LYMPHOCYTE # 0.7 TH/MM3 (1.0-4.8); MEAN CORPUSCULAR HEMOGLOBIN 29.4 PG (27.0-34.0); MEAN CORPUSCULAR HGB CONC 32.7 % (32.0-36.0); MEAN PLATELET VOLUME 9.6 FL (7.0-11.0); MONO % 6.2 % (0.0-8.0); MONOCYTE # 0.9 TH/MM3 (0-0.9); NEUT % 88.3 % (16.0-70.0); PLATELET COUNT 169 TH/MM3 (150-450); RED BLOOD COUNT 3.55 MIL/MM3 (4.00-5.30); RED CELL DISTRIBUTION WIDTH 12.9 % (11.6-17.2); WHITE BLOOD COUNT 14.7 TH/MM3 (4.0-11.0)
[2017-11-17 11:26] LABS: CALCIUM 8.2 MG/DL (8.5-10.1)
[2017-11-17 11:30] LABS: CREATININE 0.82 MG/DL (0.50-1.00)
[2017-11-17 11:52] LABS: BANDS 9 % (0-6); LYMPHOCYTES 9 % (9-44); MONOCYTES 6 % (0-8); NEUTROPHIL # MANUAL DIFF 12.5 TH/MM3 (1.8-7.7); POLYS (SEG NEUTROPHILS) 76 % (16-70)
--- NOTE | 2017-11-17 12:13 | RADRPT ---
EXAM DATE/TIME: 11/17/2017 11:28 [facility] COMPARISON: CT ABDOMEN & PELVIS W CONTRAST, November 14, 2017, 17:29. INDICATIONS : Pancreatitis. Abdominal pain and fevers. CONTRAST: 17 cc Omniscan (gadodiamide) IV MEDICAL HISTORY : None. SURGICAL HISTORY : Cholecystectomy. Hysterectomy. Right knee and bilateral ears. ENCOUNTER: Initial ACUITY: 3 day PAIN SCORE: 7/10 LOCATION: Abdomen. TECHNIQUE: Multiplanar, multisequence magnetic resonance imaging of the abdomen was performed. High-resolution 3D dataset was utilized to reconstruct maximum-intensity projection (MIP) images. FINDINGS: INTRAHEPATIC BILE DUCTS: Mildly dilated EXTRAHEPATIC BILE DUCTS: Moderately dilated with common duct diameter approaching 12 mm. Focal tapering of the common duct dis tally in the pancreatic head region which could be a manifestation of stricturing associated with oth erwise occult mass. GALLBLADDER: Surgically absent LIVER: Normal size and signal intensity. No liver lesion is identified. Portal vein is within normal limits . PANCREAS: Moderate diffuse pancreatic ductal dilatation. No discrete mass is visualized. OTHER: The remaining visualized structures demonstrate no acute abnormality. CONCLUSION: Moderate biliary ductal dilatation and pancreatic ductal dilatation. Rashel Reyes MD on November 17, 2017 at 12:03 Board Certified Radiologist. This report was verified electronically.
[2017-11-17] MEDS: AZITHROMYCIN INJ 500 MG in SODIUM CHLOR 0.9% 250 ML INJ 250 ML IV SCH (17:50)
--- NOTE | 2017-11-17 18:58 | HHI.GIFU ---
Subjective Remarks Patient complains of severe, diffuse abdominal pain at times radiating to the back. Present pain medications not controlling the symptoms. Denies any jaundice pruritus fever chills. Objective Vitals I&O Vital Signs Date Time Temp Pulse Resp B/P (MAP) Pulse Ox O2 Delivery O2 Flow Rate FiO2 11/17/17 16:00 97.8 81 19 118/55 (76) 94 11/17/17 11:47 100.0 112 19 121/60 (80) 95 11/17/17 10:29 18 11/17/17 10:29 18 11/17/17 07:46 101.3 97 19 144/70 (94) 95 11/17/17 07:32 94 Nasal Cannula 2.00 11/17/17 00:00 99.9 98 20 114/56 (75) 90 11/16/17 20:00 99.2 97 20 121/58 (79) 98 11/16/17 19:50 98 Nasal Cannula 2.00 11/16/17 19:38 90 21 I/O 11/16/17 11/16/17 11/16/17 11/17/17 11/17/17 11/17/17 07:00 15:00 23:00 07:00 15:00 23:00 Intake Total 480 ml 100 ml 480 ml 480 ml 0 ml 760 ml Output Total 1000 ml 500 ml Balance 480 ml 100 ml -520 ml 480 ml 0 ml 260 ml Intake Oral 480 ml 480 ml 480 ml 0 ml 760 ml IV Total 100 ml Output Urine Total 1000 ml 500 ml # Voids 3 3 3 # Bowel Movements 0 0 3 Laboratory Laboratory Tests Test 11/16/17 19:30 11/17/17 10:15 Carcinoembryonic Antigen 1.0 CA 19-9 Antigen 90.6 Immunoglobulin G Total 528 White Blood Count 14.7 Red Blood Count 3.55 Hemoglobin 10.4 Hematocrit 31.9 Mean Corpuscular Volume 90.0 Mean Corpuscular Hemoglobin 29.4 Mean Corpuscular Hemoglobin Concent 32.7 Red Cell Distribution Width 12.9 Platelet Count 169 Mean Platelet Volume 9.6 Neutrophils (%) (Auto) 88.3 Lymphocytes (%) (Auto) 4.6 Monocytes (%) (Auto) 6.2 Eosinophils (%) (Auto) 0.6 Basophils (%) (Auto) 0.3 Neutrophils # (Auto) 13.0 Lymphocytes # (Auto) 0.7 Monocytes # (Auto) 0.9 Eosinophils # (Auto) 0.1 Basophils # (Auto) 0.0 CBC Comment AUTO DIFF Differential Total Cells Counted 100 Neutrophils % (Manual) 76 Band Neutrophils % 9 Lymphocytes % 9 Monocytes % 6 Neutrophils # (Manual) 12.5 Differential Comment FINAL DIFF MANUAL Platelet Estimate NORMAL Platelet Morphology Comment NORMAL Red Cell Morphology Comment NORMAL Blood Urea Nitrogen 21 Creatinine 0.82 Random Glucose 113 Calcium Level 8.2 Sodium Level 142 Potassium Level 3.9 Chloride Level 110 Carbon Dioxide Level 26.0 Anion Gap 6 Estimat Glomerular Filtration Rate 70 Lipase 2677 Date/Time Source Procedure Growth Status 11/14/17 16:40 Blood Peripheral Aerobic Blood Culture - Preliminary NO GROWTH IN 3 DAYS Resulted 11/14/17 16:40 Blood Peripheral Anaerobic Blood Culture - Preliminary NO GROWTH IN 3 DAYS Resulted 11/16/17 16:55 Urine Clean Catch Legionella Antigen - Final PRESUMPTIVE NEGATIVE FOR LEGIONELLA P... Complete Imaging MRCP scan showed dilated common bile duct and main pancreatic duct with tapering near the ampulla. No masses visualized Physical Exam HEENT: Pupils round and reactive to light; normocephalic; atraumatic; no jaundice. Throat is clear. NECK: Neck is supple, no JVD, no lymphadenopathy. CHEST: Chest is clear to auscultation and percussion. CARDIAC: Regular rate and rhythm with no murmur gallop or rubs. ABDOMEN: Diffusely tender, guarding present, no rigidity, no masses palpable, bowel sounds sluggish EXTREMITIES: No clubbing, cyanosis, or edema. SKIN: Normal; no rash; no jaundice. PLANT WRAPPER: No focal deficits; alert and oriented times three. 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 Clear liquid diet 2. IV Dilaudid as needed pain 3. Monitor labs 4. Patient needs a EUS to assess for possibility of underlying papillary stenosis and pancreatic neoplasm. This can be planned as an outpatient after the present episode resolves Problem Qualifiers (1) Acute pancreatitis: Qualified Codes: K85.90 - Acute pancreatitis without necrosis or infection, unspecified Mt Summers MD November 17, 2017 18:58
[2017-11-17] MEDS: LACTOBACILLUS ACIDOPHILUS TAB PO SCH (20:03)
[2017-11-17] MEDS: ENOXAPARIN SODIUM 40 MG/0.4 ML SYRINGE SQ SCH (20:03)
[2017-11-17] MEDS: DOCUSATE SODIUM 50 MG/SENNA 8.6 MG TAB PO SCH (20:05)
[2017-11-17] MEDS: KETOROLAC TROMETHAMINE 30 MG/ML (IVP) VIAL IVP PRN (20:07)
[2017-11-17] MEDS ORDERED: HYDROmorphone HCL PF 2 MG/ML VIAL IV PRN (21:00)
[2017-11-18] VITALS (8 sets, daily range): BP systolic 132–160; BP diastolic 66–84; PULSE 95–104; RESP 15–20; TEMP 98.8–101.5; O2SAT 90–98
[2017-11-18] MEDS: ONDANSETRON HCL 4 MG/2 ML VIAL IV PUSH PRN (03:55)
[2017-11-18] MEDS: MORPHINE SULFATE 4 MG/ML INJ IV PRN ×5 (03:55→23:11)
[2017-11-18] MEDS: CEFEPIME INJ 2,000 MG in SODIUM CHLORIDE 0.9% INJ 100 ML IV SCH (05:19)
[2017-11-18 06:57] LABS: CHLORIDE 110 MEQ/L (98-107); SODIUM (NA) 143 MEQ/L (136-145)
[2017-11-18 07:08] LABS: ALBUMIN 1.7 GM/DL (3.4-5.0); CALCIUM 8.4 MG/DL (8.5-10.1); GLUCOSE,RANDOM 87 MG/DL (74-106)
[2017-11-18 07:09] LABS: BLOOD UREA NITROGEN 21 MG/DL (7-18)
[2017-11-18 07:11] LABS: ALT (GPT) 39 U/L (10-53); AST (GOT) 21 U/L (15-37); CREATININE 0.79 MG/DL (0.50-1.00); GLOMERULAR FILTRATION RATE 73 ML/MIN (>89)
[2017-11-18 07:13] LABS: TOTAL PROTEIN 5.6 GM/DL (6.4-8.2)
[2017-11-18 07:14] LABS: ALKALINE PHOSPHATASE 108 U/L (45-117)
[2017-11-18 07:15] LABS: TOTAL BILIRUBIN ADULT 0.8 MG/DL (0.2-1.0)
[2017-11-18] MEDS: RESP: ALBUTEROL 2.5 MG/IPRATROPIUM 0.5 MG NEB (SCH) NEB ×3 (07:24→19:48)
[2017-11-18] MEDS: LACTOBACILLUS ACIDOPHILUS TAB PO SCH ×2 (08:40→20:34)
[2017-11-18] MEDS: DOCUSATE SODIUM 50 MG/SENNA 8.6 MG TAB PO SCH ×2 (08:40→20:35)
[2017-11-18] MEDS: LACTATED RINGER'S 1000 ML INJ 1,000 ML IV SCH (08:48)
[2017-11-18] MEDS: SODIUM CHLORIDE 0.9% FLUSH 10 ML FLUSH IV FLUSH SCH ×2 (08:48→20:34)
[2017-11-18] MEDS ORDERED: Vancomycin Consult Pharmacy 1 EA OTHER SCH (09:00)
--- NOTE | 2017-11-18 09:09 | HHI.PR ---
Subjective Remarks Patient seen and examined today for follow-up on pancreatitis, atelectasis, lung consolidation, febrile illness. Patient states that she did have a rough night. Had difficulty sleeping secondary to pain. T-max 101.5. Patient is tolerating liquid diet Objective Vitals Vital Signs Date Time Temp Pulse Resp B/P (MAP) Pulse Ox O2 Delivery O2 Flow Rate FiO2 11/18/17 08:48 18 11/18/17 07:56 100.4 95 19 158/74 (102) 92 11/18/17 07:53 92 Nasal Cannula 3.00 11/18/17 07:25 90 Nasal Cannula 2.00 11/18/17 04:00 100.0 98 16 160/75 (103) 98 11/17/17 20:20 93 Nasal Cannula 2.00 11/17/17 20:00 101.3 110 15 150/86 (107) 95 11/17/17 19:09 16 11/17/17 16:00 97.8 81 19 118/55 (76) 94 11/17/17 11:47 100.0 112 19 121/60 (80) 95 11/17/17 10:29 18 I/O 11/17/17 11/17/17 11/17/17 11/18/17 11/18/17 11/18/17 07:00 15:00 23:00 07:00 15:00 23:00 Intake Total 480 ml 0 ml 760 ml 360 ml 120 ml Output Total 500 ml Balance 480 ml 0 ml 260 ml 360 ml 120 ml Intake Oral 480 ml 0 ml 760 ml 360 ml 120 ml Output Urine Total 500 ml # Voids 3 # Bowel Movements 3 Result Diagram: 11/17/17 1015 11/18/17 0520 Imaging Last Impressions Cholangiopancreatography MRI 11/17/17 0000 Signed Impressions: Service Date/Time: Friday, November 17, 2017 11:28 - CONCLUSION: Moderate biliary ductal dilatation and pancreatic ductal dilatation. Rashel Reyes MD Liver Ultrasound 11/16/17 0000 Signed Impressions: Service Date/Time: Thursday, November 16, 2017 10:37 - CONCLUSION: 1. Dilated main pancreatic duct measuring up to 9 mm. No obstructing mass is clearly seen on today's examination or the prior CT but the duct dilatation extends to the pancreatic head. Consider further evaluation for an occult mass in the pancreatic head once condition permits. Noninvasively this could be obtained with pancreas protocol MRI with and without intravenous contrast to include MRCP images. 2. Dilated common bile duct in this patient post cholecystectomy. The common duct does taper distally on the recent CT without a distal obstructing process identified. 3. There is trace perihepatic free fluid and a small left pleural effusion is visualized. Rashel Lopez MD Chest CT 11/16/17 0000 Signed Impressions: Service Date/Time: Thursday, November 16, 2017 11:33 - CONCLUSION: 1. Moderate severity atelectasis/consolidation at the dependent portions of lower lobes and right middle lobe. 2. Small pleural effusions. 3. Increased peripancreatic edema. Consistent with acute pancreatitis Rex Galeas MD Abdomen/Pelvis CT 11/14/17 1635 Signed Impressions: Service Date/Time: Tuesday, November 14, 2017 17:29 - CONCLUSION: Prominent common duct and pancreatic duct extending into the head of pancreas without focal mass. Correlation is suggested I do not see an etiology for the epigastric pain Moy Johnson MD FACR Chest X-Ray 11/14/17 0000 Signed Impressions: Service Date/Time: Tuesday, November 14, 2017 16:56 - CONCLUSION: Minimal bibasilar parenchymal changes. Moy Johnson MD FACR Objective Remarks GENERAL: Well-developed, well-nourished, in no acute distress. alert and orientated HEENT: Head is normocephalic without any lesions or masses noted. Facial features are symmetric. Eyes: Extraocular muscles are intact. Conjunctivae were clear. NECK: Supple without any masses. Trachea midline no deviation. No JVD, CARDIAC: Regular rhythm, regular rate. S1/S2 are heard. No murmurs gallops or rubs. LUNGS: Clear to auscultation bilaterally. No wheeze, rhonchi or rales. No use of accessory muscles on inspiration or expiration. ABDOMEN: Soft, mild tenderness noted in the epigastric region. Nondistended. Bowel sounds heard in all 4 quadrants. No organomegaly or masses. Negative rebound, negative guarding EXTREMITIES: No edema, pulses are equal bilaterally. No cyanosis or clubbing NEUROLOGY: Mood and affect appear appropriate. Cranial nerves II through XII grossly intact. Moving all extremities, speech is clear Urinary Catheter: No Vascular Central Line Catheter: No A/P Assessment and Plan Sepsis, persistent -Patient remains febrile, leukocytosis, tachycardic, atelectasis versus consolidation in the bilateral lung -Likely secondary to pancreatitis, but infectious process that needs to be ruled out -Patient initially started on Rocephin, Zithromax -Was changed to cefepime with Zithromax -We will start vancomycin, Azactam Persistent febrile illness, -Original blood cultures have remained negative for 4 days, Legionella testing was negative -Obtain new blood cultures, influenza testing, sputum culture, -Consult infectious disease Acute pancreatitis unknown etiology -Patient presented with diffuse abdominal pain, nausea and vomiting -Lipase 13,000 on presentation. Trending downward. Liver enzymes within normal limits. -Abdomen/pelvis CT reviewed showing prominent common duct and pancreatic duct extending to the head of the pancreas without focal mass. -MRCP was performed which did show moderate biliary ductal dilatation and pancreatic ductal dilatation. Without any mass -Patient tolerating p.o. at this time, -GI consulted who recommending EUS in an outpatient setting -Continue IV fluids at this time -Start p.o. pain medication with morphine IV for breakthrough -Patient did have mildly elevated CA-19-9, however no mass was appreciated, could be reactive to acute pancreatitis -Awaiting records from previous hospitalizations and treatment from [facility] in [place]. Community acquired pneumonia with hypoxia -Chest CT reviewed showing moderate severity atelectasis/consolidation of the dependent portions of the lower lobes and right middle lobe. Small pleural effusions. -Supplemental O2 as needed to maintain O2 sats greater than 92%. -Duo nebs scheduled and as needed for shortness of breath. -Start Robitussin-AC for cough suppression DVT prophylaxis: -Sequential compression devices -Subcutaneous Lovenox Discharge Planning Discharge planning in 48-72 hours depending on patient's response to treatment, patient remains afebrile, enzymes continue to trend down Harry Sherman November 18, 2017 09:09
[2017-11-18 10:24] LABS: CHOLESTEROL 118 MG/DL (120-200); TRIGLYCERIDES 129 MG/DL (42-150)
[2017-11-18 10:26] LABS: CHOLESTEROL/ HDL RATIO 5.95 RATIO; HDL CHOLESTEROL 19.8 MG/DL (40.0-60.0); LDL CHOLESTEROL 72 MG/DL (0-99)
[2017-11-18] MEDS: guaiFENesin/CODEINE SYRUP 200 MG/20 MG/10 ML CUP PO PRN ×2 (12:06→12:13)
[2017-11-18] MEDS: ALPRAZolam 0.25 MG TAB PO PRN (12:06)
[2017-11-18] MEDS: AZTREONAM INJ 2,000 MG in SODIUM CHLORIDE 0.9% INJ 100 ML IV SCH ×2 (12:07→17:58)
[2017-11-18] MEDS: ACETAMINOPHEN 325 MG TAB PO PRN ×2 (12:07→18:01)
[2017-11-18] MEDS: VANCOMYCIN INJ 1,000 MG in SODIUM CHLOR 0.9% 250 ML INJ 250 ML IV SCH ×2 (12:08→22:38)
[2017-11-18] MEDS: NS + KCL 20 MEQ INJ 1,000 ML IV SCH ×2 (12:08→20:33)
[2017-11-18] MEDS: AZITHROMYCIN INJ 500 MG in SODIUM CHLOR 0.9% 250 ML INJ 250 ML IV SCH (17:59)
--- NOTE | 2017-11-18 18:17 | MB ---
cc: Tony Lieberman MD DATE: 11/18/2017 REQUESTING PHYSICIAN: LISA Nguyen REASON FOR CONSULTATION: Persistent fever, sepsis. I appreciate recommendations. HISTORY OF PRESENT ILLNESS: This is a 67-year-old white female who presented to the emergency department on 11/14/2017, with abdominal pain. The patient also developed nausea and also had shortness of breath. She has a history of multiple episodes of pancreatitis in the past. The patient had a temperature of 100.3 degrees on presentation, and the white blood cell count was elevated at 12.8. Her lipase was markedly elevated at 13,001. She was admitted and started on antibiotics. She had improvement in the fevers for a short period of time and then she spiked up to 102.2 on 11/15. Since then, she has had intermittent temperature spikes daily with maximum temperature going up to 101.5. She has been febrile most of today. The patient is currently sitting up in a chair. Her main complaint is pain in the abdomen, which goes across the abdomen and towards her back. She also notes urinary hesitancy. She has nonproductive cough also. Blood cultures were taken on 11/11, have no growth. The patient was initially on cefepime, and she received Zithromax and ceftriaxone. Also, initially, she had change in antibiotics to vancomycin and aztreonam. Urinalysis on 11/15 was unremarkable. White blood cell count has increased from 12.[address] scan of the abdomen and pelvis shows prominent common bile duct and pancreatic duct extending into the head of the pancreas. The patient has history of mitral valve prolapse. CT scan of the chest shows moderate severity atelectasis/consolidation in the dependent portions of the lower lobes and right middle lobe. Also, increased peripancreatic edema consistent with acute pancreatitis. She states that attempts to eat led to increased abdominal pain. She denies diarrhea. The patient fell approximately 4 weeks ago and injured her right hand. This is currently in a cast. She also noted pain at her right shoulder. She denies dizziness at the time when she fell. She reports that she was in an elevator and accidentally fell onto her and caused her to fall and injure herself. PAST MEDICAL HISTORY: History of pancreatitis, history of mild mitral valve prolapse, anxiety disorder, hysterectomy, cholecystectomy, right knee repair. ALLERGIES: PENICILLIN, CIPROFLOXACIN, HYDROMORPHONE. MEDICATIONS: Vancomycin, aztreonam, Xanax, morphine sulfate, Percocet p.r.n., Lactinex, Vivian-Colace, azithromycin intravenous, DuoNeb, Lovenox. SOCIAL HISTORY: The patient is . No tobacco. Rare occasional alcohol. No illicit drugs. FAMILY HISTORY: Noncontributory. REVIEW OF SYSTEMS: GENERAL: Significant for chills and fever. HEAD, EARS, EYES, NOSE AND THROAT: Denies visual difficulties. Denies nasal drainage. Denies soreness of the throat. RESPIRATORY: Positive cough. CARDIOVASCULAR: Denies palpitation or chest pain. GASTROINTESTINAL: Significant for nausea and abdominal pain. GENITOURINARY: Significant for hesitancy. MUSCULOSKELETAL: Significant for low back pain. ENDOCRINE: Denies polyuria or polydipsia. HEMATOPOIETIC: Denies easy bruising or bleeding. INTEGUMENTARY: Denies skin rash or itching. NEUROLOGIC: Denies problems with coordination. PSYCHIATRIC: Denies mood changes. PHYSICAL EXAMINATION: GENERAL: This is a well-developed female, who is awake and alert. She is in no acute distress. VITAL SIGNS: Temperature 99.3, BP 138/84, respirations 20, heart rate 100. HEENT: Head is atraumatic. Extraocular movements grossly intact. Pupils reactive to light. No icterus. Oropharynx: Moist mucosa without lesions. NECK: Supple. No adenopathy. LUNGS: Decreased breath sounds at the bases. CARDIOVASCULAR: Regular rate and rhythm. No murmurs, rubs or gallops. ABDOMEN: Bowel sounds present. Tenderness at the periumbilical area and also across the mid abdomen. BACK: The patient has tenderness on palpation of the lower back. RECTAL: Not performed. EXTREMITIES: No clubbing or cyanosis. No edema. SKIN: No rash. NEUROLOGIC: No gross focal findings. PSYCHIATRIC: The patient is calm and cooperative. LABORATORY DATA: WBC 14.7, platelets 169, 88% neutrophils. Differential, 76% neutrophils, 9% bands. Hemoglobin 10.4, platelets 169. Creatinine 0.79, BUN 21, sodium 143. Liver function test normal. Lipase 2579, albumin 1.7, total bilirubin 0.8. IMPRESSION: 1. Fever and leukocytosis in patient with abdominal pain. Probable fever related to pancreatitis. 2. Acute pancreatitis. 3. ANTIBIOTIC ALLERGIES AND POSSIBLY DRUG FEVER RELATED TO ANTIBIOTICS. 4. Abnormal chest x-ray, probable pneumonia. RECOMMENDATIONS: 1. Continue vancomycin. 2. Continue aztreonam. 3. Discontinue azithromycin. 4. Monitor the blood cultures. 5. Obtain urinary eosinophils. 6. Monitor the temperatures. 7. Obtain sputum culture if feasible. Thank you for this consultation. The patient's progress will be monitored and further recommendations given upon followup if necessary. MD DOMO Zhou/AGAPITO , 05:38 PM , 06:16 PM
[2017-11-18] MEDS: ENOXAPARIN SODIUM 40 MG/0.4 ML SYRINGE SQ SCH (20:33)
[2017-11-19] VITALS (8 sets, daily range): BP systolic 107–167; BP diastolic 66–77; PULSE 67–111; RESP 15–20; TEMP 97–101; O2SAT 92–96
[2017-11-19] MEDS: AZTREONAM INJ 2,000 MG in SODIUM CHLORIDE 0.9% INJ 100 ML IV SCH ×3 (02:00→16:38)
[2017-11-19] MEDS: ALPRAZolam 0.25 MG TAB PO PRN (02:01)
[2017-11-19] MEDS: ACETAMINOPHEN 325 MG TAB PO PRN (02:01)
[2017-11-19] MEDS: MORPHINE SULFATE 4 MG/ML INJ IV PRN ×2 (03:51→11:24)
[2017-11-19 06:51] LABS: AUTOMATED NEUTROPHIL # 9.9 TH/MM3 (1.8-7.7); BASOPHIL % 0.3 % (0.0-2.0); EOSINOPHIL # 0.2 TH/MM3 (0-0.4); EOSINOPHIL % 1.3 % (0.0-4.0); HEMATOCRIT 29.3 % (35.0-46.0); HEMOGLOBIN 9.3 GM/DL (11.6-15.3); LYMPH % 8.5 % (9.0-44.0); LYMPHOCYTE # 1.1 TH/MM3 (1.0-4.8); MEAN CELL VOLUME 90.4 FL (80.0-100.0); MEAN CORPUSCULAR HEMOGLOBIN 28.8 PG (27.0-34.0); MEAN CORPUSCULAR HGB CONC 31.8 % (32.0-36.0); MONO % 9.9 % (0.0-8.0); MONOCYTE # 1.2 TH/MM3 (0-0.9); PLATELET COUNT 199 TH/MM3 (150-450); RED BLOOD COUNT 3.24 MIL/MM3 (4.00-5.30); RED CELL DISTRIBUTION WIDTH 13.2 % (11.6-17.2); WHITE BLOOD COUNT 12.4 TH/MM3 (4.0-11.0)
[2017-11-19 07:05] LABS: BICARBONATE 25.4 MEQ/L (21.0-32.0)
[2017-11-19] MEDS: RESP: ALBUTEROL 2.5 MG/IPRATROPIUM 0.5 MG NEB (SCH) NEB ×2 (07:07→13:47)
[2017-11-19 07:08] LABS: CREATININE 0.49 MG/DL (0.50-1.00)
--- NOTE | 2017-11-19 08:46 | HHI.PR ---
Subjective Remarks Patient seen and examined today for follow-up on sepsis, pancreatitis, community acquired pneumonia. Patient states that she is doing better. Only received 1 dose of pain medication overnight. States that pain is improving, however still gets increased pain whenever she eats or drinks high sugar liquids to include apple juice, Jell-O. Patient would like her diet advanced. Patient is now afebrile. Objective Vitals Vital Signs Date Time Temp Pulse Resp B/P (MAP) Pulse Ox O2 Delivery O2 Flow Rate FiO2 11/19/17 07:55 97.4 84 19 145/71 (95) 95 11/19/17 07:07 96 Nasal Cannula 3.00 11/19/17 00:00 97.9 67 15 107/66 (80) 93 11/19/17 00:00 97.0 77 15 145/76 (99) 95 11/18/17 20:00 98.8 95 15 132/82 (99) 95 11/18/17 19:53 94 Nasal Cannula 3.00 11/18/17 19:02 18 11/18/17 18:13 18 11/18/17 16:22 99.3 100 20 138/84 (102) 93 11/18/17 12:17 18 11/18/17 12:15 101.5 104 20 133/66 (88) 94 11/18/17 08:48 18 I/O 11/18/17 11/18/17 11/18/17 11/19/17 11/19/17 11/19/17 07:00 15:00 23:00 07:00 15:00 23:00 Intake Total 360 ml 120 ml 1000 ml 300 ml 120 ml Output Total 700 ml 650 ml Balance 360 ml 120 ml 300 ml -350 ml 120 ml Intake Oral 360 ml 120 ml 1000 ml 300 ml 120 ml Output Urine Total 700 ml 650 ml Result Diagram: 11/19/17 0545 11/19/17 0545 Objective Remarks GENERAL: Well-developed, well-nourished, in no acute distress. alert and orientated HEENT: Head is normocephalic without any lesions or masses noted. Facial features are symmetric. Eyes: Extraocular muscles are intact. Conjunctivae were clear. NECK: Supple without any masses. Trachea midline no deviation. No JVD, CARDIAC: Regular rhythm, regular rate. S1/S2 are heard. No murmurs gallops or rubs. LUNGS: Clear to auscultation bilaterally. No wheeze, rhonchi or rales. No use of accessory muscles on inspiration or expiration. ABDOMEN: Soft, mild tenderness noted in the epigastric region. Nondistended. Bowel sounds heard in all 4 quadrants. No organomegaly or masses. Negative rebound, negative guarding EXTREMITIES: No edema, pulses are equal bilaterally. No cyanosis or clubbing NEUROLOGY: Mood and affect appear appropriate. Cranial nerves II through XII grossly intact. Moving all extremities, speech is clear Urinary Catheter: No Vascular Central Line Catheter: No A/P Assessment and Plan Sepsis, persistent -Patient now afebrile, leukocytosis is improving, tachycardic, atelectasis versus consolidation in the bilateral lung -Likely secondary to pancreatitis, but infectious process that needs to be ruled out -Patient was previously on Rocephin, Zithromax, cefepime -Continue vancomycin, Azactam Persistent febrile illness, resolved -Original blood cultures have remained negative for 4 days, Legionella testing was negative -Influenza testing was negative -Repeat blood cultures are pending -Awaiting sputum culture -Consulted infectious disease Acute pancreatitis unknown etiology -Patient presented with diffuse abdominal pain, nausea and vomiting -Lipase 13,000 on presentation. Trending downward. Liver enzymes within normal limits. -Abdomen/pelvis CT reviewed showing prominent common duct and pancreatic duct extending to the head of the pancreas without focal mass. -MRCP was performed which did show moderate biliary ductal dilatation and pancreatic ductal dilatation. Without any mass -Patient tolerating p.o. at this time, advanced to regular diet soft consistency -GI consulted who recommending EUS in an outpatient setting -Continue IV fluids at this time -Continue p.o. Percocet with morphine IV for breakthrough -Patient did have mildly elevated CA-19-9, however no mass was appreciated, could be reactive to acute pancreatitis -Awaiting records from previous hospitalizations and treatment from [facility] in [place]. Community acquired pneumonia with hypoxia -Chest CT reviewed showing moderate severity atelectasis/consolidation of the dependent portions of the lower lobes and right middle lobe. Small pleural effusions. -Supplemental O2 as needed to maintain O2 sats greater than 92%. -Duo nebs scheduled and as needed for shortness of breath. -Continue Robitussin-AC for cough suppression -Instructed patient on importance of incentive spirometry DVT prophylaxis: -Sequential compression devices -Subcutaneous Lovenox Discharge Planning Discharge planning in 24-48 hours depending on patient's response to treatment, patient remains afebrile, enzymes continue to trend down Harry Sherman November 19, 2017 08:46
[2017-11-19] MEDS: NS + KCL 20 MEQ INJ 1,000 ML IV SCH ×2 (08:50→16:45)
[2017-11-19] MEDS: DOCUSATE SODIUM 50 MG/SENNA 8.6 MG TAB PO SCH ×2 (09:00→21:23)
[2017-11-19] MEDS: SODIUM CHLORIDE 0.9% FLUSH 10 ML FLUSH IV FLUSH SCH ×2 (09:00→21:24)
[2017-11-19] MEDS: LACTOBACILLUS ACIDOPHILUS TAB PO SCH ×2 (09:06→21:23)
[2017-11-19] MEDS: VANCOMYCIN INJ 1,000 MG in SODIUM CHLOR 0.9% 250 ML INJ 250 ML IV SCH ×2 (09:07→23:17)
[2017-11-19] MEDS: oxyCODONE/ACETAMINOPHEN 7.5 MG/325 MG TAB PO PRN (09:16)
[2017-11-19] MEDS ORDERED: OXYGENDME NAS.CANULA (10:49)
[2017-11-19] MEDS ORDERED: NEBULIZER1 MI1 (10:49)
[2017-11-19] MEDS: guaiFENesin/CODEINE SYRUP 200 MG/20 MG/10 ML CUP PO PRN (12:38)
[2017-11-19] MEDS: oxyCODONE/ACETAMINOPHEN 10 MG/325 MG TAB PO PRN (15:50)
--- NOTE | 2017-11-19 17:20 | HHI.IDPN ---
Note Infectious Disease Note Patient states that she is having pain on the right lower back region. She has nonproductive cough. Appears obviously short of breath after she sat upright in a recliner for me to listen to her lungs. Feels tired. Temperature spike to 101 this afternoon. White blood cell count is lower. Lipase has decreased. 67-year-old white female who presented to the emergency department on 11/14/2017, with abdominal pain. The patient also developed nausea and also had shortness of breath. Lipase was markedly elevated and she developed fevers. PAST MEDICAL HISTORY: History of pancreatitis, history of mild mitral valve prolapse, anxiety disorder, hysterectomy, cholecystectomy, right knee repair. ALLERGIES: PENICILLIN, CIPROFLOXACIN, HYDROMORPHONE. MEDICATIONS: Current Medications Medications (Trade) Dose Ordered Sig/Katerina Route PRN Reason Start Time Stop Time Status Last Admin Dose Admin Sodium Chloride (NS Flush) 2 ml UNSCH PRN IV FLUSH FLUSH AFTER USING IV ACCESS 11/14/17 18:15 Sodium Chloride (NS Flush) 2 ml BID IV FLUSH 11/14/17 21:00 11/18/17 20:34 Ondansetron HCl (Zofran Inj) 4 mg Q6H PRN IV PUSH NAUSEA OR VOMITING 11/14/17 18:15 11/18/17 03:55 Enoxaparin Sodium (Lovenox Inj) 40 mg Q24H SQ 11/14/17 20:00 11/18/17 20:33 Acetaminophen (Tylenol) 650 mg Q4H PRN PO temp >101 or headache 11/15/17 08:00 11/19/17 02:01 Albuterol/ Ipratropium (Duoneb Neb) 1 ampule Q2HR NEB PRN NEB shortness of breath 11/15/17 11:45 Lactobacillus Acidophilus (Lactinex) 1 tab Q12HR PO 11/17/17 21:00 11/19/17 09:06 Senna/Docusate Sodium (Vivian-Colace) 1 tab BID PO 11/17/17 21:00 11/19/17 09:00 Magnesium Hydroxide (Milk Of Magnesia Liq) 30 ml Q12H PRN PO Mild constipation 11/17/17 09:45 Sennosides (Senokot) 17.2 mg Q12H PRN PO Moderate constipation 11/17/17 09:45 Bisacodyl (Dulcolax Supp) 10 mg DAILY PRN RECTAL SEVERE CONSITIPATION 11/17/17 09:45 Lactulose (Lactulose Liq) 30 ml DAILY PRN PO SEVERE CONSITIPATION 11/17/17 09:45 Oxycodone/ Acetaminophen (Percocet 7.5-325 Mg) 1 tab Q6H PRN PO PAIN SCALE 1 TO 5 11/18/17 09:00 11/19/17 09:16 Oxycodone/ Acetaminophen (Percocet 10-325 Mg) 1 tab Q6H PRN PO PAIN SCALE 6 TO 10 11/18/17 09:00 11/19/17 15:50 Guaifenesin/ Codeine Phosphate (Robitussin Ac 200-20 Mg/10 ml Liq) 10 ml Q6H PRN PO COUGH 11/18/17 09:00 11/19/17 12:38 Potassium Chloride/Sodium Chloride 1,000 ml @ 84 mls/hr [id number] IV 11/18/17 09:00 11/19/17 16:45 Aztreonam 2000 mg/ Sodium Chloride 100 ml @ 200 mls/hr Q8H IV 11/18/17 10:00 11/19/17 16:38 Vancomycin HCl 1000 mg/Sodium Chloride 250 ml @ 250 mls/hr Q12H IV 11/18/17 11:00 11/19/17 09:07 Pharmacy Profile Note 0 ml @ 0 mls/hr UNSCH OTHER 11/18/17 09:00 Miscellaneous Information ([facility] Ordered Lab Info) SPECIFIC LAB TO BE DRAWN:VANCO TROUGH DATE TO... ONCE ONCE .XX 11/20/17 10:45 11/20/17 10:46 Alprazolam (Xanax) 0.25 mg Q8H PRN PO ANXIETY 11/18/17 10:45 11/19/17 02:01 Objective: Vital Signs Date Time Temp Pulse Resp B/P (MAP) Pulse Ox O2 Delivery O2 Flow Rate FiO2 11/19/17 16:00 101.0 111 19 153/69 (97) 95 11/19/17 12:00 98.3 100 19 167/77 (107) 95 11/19/17 07:55 97.4 84 19 145/71 (95) 95 11/19/17 07:07 96 Nasal Cannula 3.00 11/19/17 00:00 97.9 67 15 107/66 (80) 93 11/19/17 00:00 97.0 77 15 145/76 (99) 95 11/18/17 20:00 98.8 95 15 132/82 (99) 95 11/18/17 19:53 94 Nasal Cannula 3.00 11/18/17 19:02 18 11/18/17 18:13 18 Laboratory Tests Test 11/19/17 05:45 White Blood Count 12.4 TH/MM3 Red Blood Count 3.24 MIL/MM3 Hemoglobin 9.3 GM/DL Hematocrit 29.3 % Mean Corpuscular Volume 90.4 FL Mean Corpuscular Hemoglobin 28.8 PG Mean Corpuscular Hemoglobin Concent 31.8 % Red Cell Distribution Width 13.2 % Platelet Count 199 TH/MM3 Mean Platelet Volume 9.0 FL Neutrophils (%) (Auto) 80.0 % Lymphocytes (%) (Auto) 8.5 % Monocytes (%) (Auto) 9.9 % Eosinophils (%) (Auto) 1.3 % Basophils (%) (Auto) 0.3 % Neutrophils # (Auto) 9.9 TH/MM3 Lymphocytes # (Auto) 1.1 TH/MM3 Monocytes # (Auto) 1.2 TH/MM3 Eosinophils # (Auto) 0.2 TH/MM3 Basophils # (Auto) 0.0 TH/MM3 CBC Comment DIFF FINAL Differential Comment Laboratory Tests Test 11/18/17 05:20 11/18/17 16:57 11/19/17 05:45 Blood Urea Nitrogen 21 MG/DL 13 MG/DL Creatinine 0.79 MG/DL 0.49 MG/DL Random Glucose 87 MG/DL 78 MG/DL Total Protein 5.6 GM/DL Albumin 1.7 GM/DL Calcium Level 8.4 MG/DL 8.0 MG/DL Alkaline Phosphatase 108 U/L Aspartate Amino Transf (AST/SGOT) 21 U/L Alanine Aminotransferase (ALT/SGPT) 39 U/L Total Bilirubin 0.8 MG/DL Sodium Level 143 MEQ/L 141 MEQ/L Potassium Level 3.9 MEQ/L 3.8 MEQ/L Chloride Level 110 MEQ/L 109 MEQ/L Carbon Dioxide Level 27.0 MEQ/L 25.4 MEQ/L Anion Gap 6 MEQ/L 7 MEQ/L Estimat Glomerular Filtration Rate 73 ML/MIN 126 ML/MIN Triglycerides Level 129 MG/DL Cholesterol Level 118 MG/DL LDL Cholesterol 72 MG/DL HDL Cholesterol 19.8 MG/DL Cholesterol/HDL Ratio 5.95 RATIO Lipase 2579 U/L 835 U/L Lactic Acid Level 0.8 mmol/L Microbiology Date/Time Source Procedure Growth Status 11/18/17 16:57 Blood Peripheral Aerobic Blood Culture - Preliminary NO GROWTH IN 1 DAY Resulted 11/18/17 16:57 Blood Peripheral Anaerobic Blood Culture - Preliminary NO GROWTH IN 1 DAY Resulted 11/18/17 18:00 Nasal Aspirate Influenza Types A,B Antigen (KAREEM) - Final NEGATIVE FOR FLU A AND B ANTIGEN.... Complete Imaging: Cholangiopancreatography MRI 11/17/17 0000 Signed Impressions: Service Date/Time: Friday, November 17, 2017 11:28 - CONCLUSION: Moderate biliary ductal dilatation and pancreatic ductal dilatation. Rashel Reyes MD Liver Ultrasound 11/16/17 0000 Signed Impressions: Service Date/Time: Thursday, November 16, 2017 10:37 - CONCLUSION: 1. Dilated main pancreatic duct measuring up to 9 mm. No obstructing mass is clearly seen on today's examination or the prior CT but the duct dilatation extends to the pancreatic head. Consider further evaluation for an occult mass in the pancreatic head once condition permits. Noninvasively this could be obtained with pancreas protocol MRI with and without intravenous contrast to include MRCP images. 2. Dilated common bile duct in this patient post cholecystectomy. The common duct does taper distally on the recent CT without a distal obstructing process identified. 3. There is trace perihepatic free fluid and a small left pleural effusion is visualized. Rashel Lopez MD Chest CT 11/16/17 0000 Signed Impressions: Service Date/Time: Thursday, November 16, 2017 11:33 - CONCLUSION: 1. Moderate severity atelectasis/consolidation at the dependent portions of lower lobes and right middle lobe. 2. Small pleural effusions. 3. Increased peripancreatic edema. Consistent with acute pancreatitis Rex Galeas MD Abdomen/Pelvis CT 11/14/17 1635 Signed Impressions: Service Date/Time: Tuesday, November 14, 2017 17:29 - CONCLUSION: Prominent common duct and pancreatic duct extending into the head of pancreas without focal mass. Correlation is suggested I do not see an etiology for the epigastric pain Moy Johnson MD FACR Chest X-Ray 11/14/17 0000 Signed Impressions: Service Date/Time: Tuesday, November 14, 2017 16:56 - CONCLUSION: Minimal bibasilar parenchymal changes. Moy Johnson MD FACR PHYSICAL EXAMINATION: GENERAL: Awake and alert. HEENT: Head is atraumatic. Extraocular movements grossly intact. Pupils reactive to light. No icterus. Oropharynx: Moist mucosa without lesions. NECK: Supple. No adenopathy. LUNGS: Breath sounds decreased throughout. CARDIOVASCULAR: Regular rate and rhythm. No murmurs, rubs or gallops. ABDOMEN: Bowel sounds present. Soft. Tenderness at the periumbilical area and also across the mid abdomen. BACK: Tenderness on palpation of the lower back. EXTREMITIES: No clubbing or cyanosis or edema. SKIN: No rash. NEUROLOGIC: No gross focal findings. PSYCHIATRIC: Calm and cooperative. IMPRESSION: 1. Fever and leukocytosis in patient with abdominal pain. Probable fever related to pancreatitis. 2. Acute pancreatitis. 3. ANTIBIOTIC ALLERGIES AND POSSIBLY DRUG FEVER RELATED TO ANTIBIOTICS. 4. Abnormal chest x-ray, probable pneumonia. RECOMMENDATIONS: 1. Continue vancomycin. 2. Continue aztreonam. 3. Repeat the CXR. 4. Monitor the blood cultures. 5. Monitor the temperatures. May begin to trend downwards. However may take some time if related to pancreatitis. 6. Obtain sputum culture if feasible. Tony Lieberman MD November 19, 2017 17:20
--- NOTE | 2017-11-19 18:12 | RADRPT ---
EXAM DATE/TIME: 11/19/2017 17:54 [facility] COMPARISON: CHEST SINGLE AP, November 14, 2017, 16:56. INDICATIONS : Shortness of breath MEDICAL HISTORY : Pancreatitis. Mitral valve prolapse SURGICAL HISTORY : Cholecystectomy. Hysterectomy. ENCOUNTER: Subsequent ACUITY: 4 - 6 days PAIN SCORE: 0/10 LOCATION: Bilateral chest FINDINGS: There is increased density seen in the lower lungs bilaterally. The right and left heart borders are obscured. The mid and upper lungs appear grossly clear. Clips are seen in the right upper quadrant. CONCLUSION: Increased density at the bases likely related to bilateral effusions and accompanying atelectasis or consolidation at the bases. These processes appear worse when compared to the prior exam. Rashel Carmen MD on November 19, 2017 at 18:08 Board Certified Radiologist. This report was verified electronically.
[2017-11-19] MEDS: RESP: ALBUTEROL 2.5 MG/IPRATROPIUM 0.5 MG NEB (PRN) NEB (19:44)
[2017-11-19] MEDS: ENOXAPARIN SODIUM 40 MG/0.4 ML SYRINGE SQ SCH (20:45)
[2017-11-20] VITALS (8 sets, daily range): BP systolic 132–157; BP diastolic 63–83; PULSE 80–109; RESP 18–21; TEMP 96.3–100.4; O2SAT 90–98
[2017-11-20] MEDS: AZTREONAM INJ 2,000 MG in SODIUM CHLORIDE 0.9% INJ 100 ML IV SCH ×3 (02:44→18:05)
[2017-11-20] MEDS: oxyCODONE/ACETAMINOPHEN 7.5 MG/325 MG TAB PO PRN ×3 (02:48→22:03)
[2017-11-20 06:51] LABS: AUTOMATED NEUTROPHIL # 10.2 TH/MM3 (1.8-7.7); BASOPHIL % 0.4 % (0.0-2.0); EOSINOPHIL # 0.2 TH/MM3 (0-0.4); EOSINOPHIL % 1.8 % (0.0-4.0); HEMATOCRIT 28.2 % (35.0-46.0); HEMOGLOBIN 9.4 GM/DL (11.6-15.3); LYMPH % 10.5 % (9.0-44.0); LYMPHOCYTE # 1.3 TH/MM3 (1.0-4.8); MEAN CELL VOLUME 90.3 FL (80.0-100.0); MEAN CORPUSCULAR HEMOGLOBIN 29.9 PG (27.0-34.0); MEAN CORPUSCULAR HGB CONC 33.1 % (32.0-36.0); MEAN PLATELET VOLUME 8.5 FL (7.0-11.0); MONO % 6.5 % (0.0-8.0); MONOCYTE # 0.8 TH/MM3 (0-0.9); NEUT % 80.8 % (16.0-70.0); PLATELET COUNT 211 TH/MM3 (150-450); RED BLOOD COUNT 3.13 MIL/MM3 (4.00-5.30); WHITE BLOOD COUNT 12.5 TH/MM3 (4.0-11.0)
[2017-11-20 07:03] LABS: BICARBONATE 24.9 MEQ/L (21.0-32.0)
[2017-11-20 07:06] LABS: CREATININE 0.52 MG/DL (0.50-1.00)
[2017-11-20] MEDS ORDERED: FUROSEMIDE 40 MG/4 ML VIAL IV PUSH ONE (07:45)
[2017-11-20] MEDS: DOCUSATE SODIUM 50 MG/SENNA 8.6 MG TAB PO SCH ×2 (07:59→22:03)
[2017-11-20] MEDS: LACTOBACILLUS ACIDOPHILUS TAB PO SCH ×2 (07:59→22:03)
[2017-11-20] MEDS: oxyCODONE/ACETAMINOPHEN 10 MG/325 MG TAB PO PRN (08:00)
[2017-11-20] MEDS: guaiFENesin/CODEINE SYRUP 200 MG/20 MG/10 ML CUP PO PRN (08:00)
[2017-11-20] MEDS: RESP: ALBUTEROL 2.5 MG/IPRATROPIUM 0.5 MG NEB (PRN) NEB (08:00)
--- NOTE | 2017-11-20 08:01 | HHI.PR ---
Subjective Remarks Patient seen and examined today for follow-up on pneumonia, pancreatitis, hypoxia. Patient states that she is doing much better. She is feeling much better. Workup yesterday did indicate patient is starting to get fluid overloaded which could be contributing to her increased oxygen demand. I spent a lot of time discussing patient's medical condition, prognosis with her today. She did spike one fever yesterday to 101.0. Otherwise vital signs are stable. Objective Vitals Vital Signs Date Time Temp Pulse Resp B/P (MAP) Pulse Ox O2 Delivery O2 Flow Rate FiO2 11/20/17 00:00 98.1 101 21 136/66 (89) 93 11/19/17 20:00 98.8 96 20 123/74 (90) 94 11/19/17 19:44 92 Nasal Cannula 3.00 11/19/17 17:42 98.6 11/19/17 16:00 101.0 111 19 153/69 (97) 95 11/19/17 12:00 98.3 100 19 167/77 (107) 95 I/O 11/19/17 11/19/17 11/19/17 11/20/17 11/20/17 11/20/17 07:00 15:00 23:00 07:00 15:00 23:00 Intake Total 300 ml 120 ml 2349 ml 1230 ml Output Total 650 ml 600 ml 500 ml Balance -350 ml 120 ml 1749 ml 730 ml Intake Oral 300 ml 120 ml 750 ml 480 ml IV Total 1599 ml 750 ml Output Urine Total 650 ml 600 ml 500 ml # Voids 4 # Bowel Movements 1 0 Result Diagram: 11/20/17 0600 11/20/17 0600 Objective Remarks GENERAL: Well-developed, well-nourished, in no acute distress. alert and orientated HEENT: Head is normocephalic without any lesions or masses noted. Facial features are symmetric. Eyes: Extraocular muscles are intact. Conjunctivae were clear. NECK: Supple without any masses. Trachea midline no deviation. No JVD, CARDIAC: Regular rhythm, regular rate. S1/S2 are heard. No murmurs gallops or rubs. LUNGS: Clear to auscultation bilaterally. No wheeze, rhonchi or rales. No use of accessory muscles on inspiration or expiration. ABDOMEN: Soft, nontender. Nondistended. Bowel sounds heard in all 4 quadrants. No organomegaly or masses. Negative rebound, negative guarding EXTREMITIES: No edema, pulses are equal bilaterally. No cyanosis or clubbing NEUROLOGY: Mood and affect appear appropriate. Cranial nerves II through XII grossly intact. Moving all extremities, speech is clear Urinary Catheter: No Vascular Central Line Catheter: No A/P Assessment and Plan Sepsis, persistent -Patient now afebrile, leukocytosis is improving, tachycardic, atelectasis versus consolidation in the bilateral lung -Likely secondary to pancreatitis, but infectious process is also possibility with possible pneumonia -Patient was previously on Rocephin, Zithromax, cefepime -Continue vancomycin, Azactam Hypoxic respiratory insufficiency -Continue O2 supplementation maintain O2 sats greater than 92% -Continue duo nebs every 6 hours while awake, every 2 hours as needed -Incentive spirometry, Acapella -Chest x-ray did indicate increased basilar fluid, atelectasis, consolidation -Give Lasix 40 mg IV 1 -Obtain echocardiogram -Follow-up chest x-ray tomorrow morning Persistent febrile illness, -Original blood cultures have remained negative for 4 days, Legionella testing was negative -Influenza testing was negative -Repeat blood cultures are negative for 1 day -Awaiting sputum culture -Consulted infectious disease Acute pancreatitis unknown etiology, resolved -Patient presented with diffuse abdominal pain, nausea and vomiting -Lipase 13,000 on presentation. Trending downward. Liver enzymes within normal limits. -Abdomen/pelvis CT reviewed showing prominent common duct and pancreatic duct extending to the head of the pancreas without focal mass. -MRCP was performed which did show moderate biliary ductal dilatation and pancreatic ductal dilatation. Without any mass -Patient tolerating p.o. at this time, advanced to regular diet -GI consulted who recommending EUS in an outpatient setting -Continue IV fluids at this time -Continue p.o. Percocet -Patient did have mildly elevated CA-19-9, however no mass was appreciated, could be reactive to acute pancreatitis -Awaiting records from previous hospitalizations and treatment from [facility] [place]. Community acquired pneumonia with hypoxia -Chest CT reviewed showing moderate severity atelectasis/consolidation of the dependent portions of the lower lobes and right middle lobe. Small pleural effusions. -Supplemental O2 as needed to maintain O2 sats greater than 92%. -Duo nebs scheduled and as needed for shortness of breath. -Continue Robitussin-AC for cough suppression -Instructed patient on importance of incentive spirometry DVT prophylaxis: -Sequential compression devices -Subcutaneous Lovenox Discharge Planning Discharge planning in 24-48 hours depending on patient's response to treatment, patient remains afebrile, enzymes continue to trend down Harry Sherman November 20, 2017 08:01
[2017-11-20] MEDS: RESP: ALBUTEROL 2.5 MG/IPRATROPIUM 0.5 MG NEB (SCH) NEB ×3 (08:07→19:36)
[2017-11-20] MEDS: SODIUM CHLORIDE 0.9% FLUSH 10 ML FLUSH IV FLUSH SCH ×2 (10:17→22:03)
[2017-11-20] MEDS ORDERED: PHARMACY ORDERED LAB ONE (10:45)
[2017-11-20] MEDS: VANCOMYCIN INJ 1,000 MG in SODIUM CHLOR 0.9% 250 ML INJ 250 ML IV SCH ×2 (13:12→23:14)
--- NOTE | 2017-11-20 14:17 | HHI.FF ---
Face to Face Verification Diagnosis: (1) Pancreatitis (2) Physical deconditioning (3) Pneumonia (4) Hypoxemia Physical Therapy Order: Evaluate and Treat, Improve ambulation, Strength and gait training Home Health Nursing Order: Medical education Signs/symptoms of disease process Oxygen administration education Nursing assessment with vital signs I have seen patient Danette Cabrera on 11/20/17. My clinical findings support the need for the requested home health care services because: Deconditioned w/ increased weakness I certify that my clinical findings support that this patient is homebound because: Hx COPD- exertion dyspnea/weakness Harry Sherman November 20, 2017 14:17
[2017-11-20] MEDS: ACETAMINOPHEN 325 MG TAB PO PRN (15:46)
--- NOTE | 2017-11-20 16:20 | HHI.GIFU ---
Subjective Remarks patient just spiked temperature, > 101, HR regular, pulse labile 80 -109 Mild Mid and RUQ Abd. pain No Nausea, vomiting No BM X 6 days Objective Vitals I&O Vital Signs Date Time Temp Pulse Resp B/P (MAP) Pulse Ox O2 Delivery O2 Flow Rate FiO2 11/20/17 15:10 20 11/20/17 13:41 98 Nasal Cannula 3.00 11/20/17 12:24 96.3 80 18 132/63 (86) 96 11/20/17 09:00 20 11/20/17 08:33 98.0 109 20 136/77 (96) 92 11/20/17 08:07 92 Nasal Cannula 3.00 11/20/17 00:00 98.1 101 21 136/66 (89) 93 11/19/17 20:00 98.8 96 20 123/74 (90) 94 11/19/17 19:44 92 Nasal Cannula 3.00 11/19/17 17:42 98.6 I/O 11/19/17 11/19/17 11/19/17 11/20/17 11/20/17 11/20/17 07:00 15:00 23:00 07:00 15:00 23:00 Intake Total 300 ml 120 ml 2349 ml 1230 ml 100 ml Output Total 650 ml 600 ml 500 ml Balance -350 ml 120 ml 1749 ml 730 ml 100 ml Intake Oral 300 ml 120 ml 750 ml 480 ml IV Total 1599 ml 750 ml 100 ml Output Urine Total 650 ml 600 ml 500 ml # Voids 4 # Bowel Movements 1 0 Laboratory Laboratory Tests Test 11/20/17 06:00 11/20/17 11:00 White Blood Count 12.5 Red Blood Count 3.13 Hemoglobin 9.4 Hematocrit 28.2 Mean Corpuscular Volume 90.3 Mean Corpuscular Hemoglobin 29.9 Mean Corpuscular Hemoglobin Concent 33.1 Red Cell Distribution Width 13.0 Platelet Count 211 Mean Platelet Volume 8.5 Neutrophils (%) (Auto) 80.8 Lymphocytes (%) (Auto) 10.5 Monocytes (%) (Auto) 6.5 Eosinophils (%) (Auto) 1.8 Basophils (%) (Auto) 0.4 Neutrophils # (Auto) 10.2 Lymphocytes # (Auto) 1.3 Monocytes # (Auto) 0.8 Eosinophils # (Auto) 0.2 Basophils # (Auto) 0.0 CBC Comment DIFF FINAL Differential Comment Blood Urea Nitrogen 10 Creatinine 0.52 Random Glucose 89 Calcium Level 8.0 Sodium Level 140 Potassium Level 3.8 Chloride Level 108 Carbon Dioxide Level 24.9 Anion Gap 7 Estimat Glomerular Filtration Rate 118 Lipase 335 Vancomycin Level Trough 10.4 Date/Time Source Procedure Growth Status 11/18/17 16:57 Blood Peripheral Aerobic Blood Culture - Preliminary NO GROWTH IN 2 DAYS Resulted 11/18/17 16:57 Blood Peripheral Anaerobic Blood Culture - Preliminary NO GROWTH IN 2 DAYS Resulted 11/18/17 18:00 Nasal Aspirate Influenza Types A,B Antigen (KAREEM) - Final NEGATIVE FOR FLU A AND B ANTIGEN.... Complete 11/16/17 16:55 Urine Clean Catch Legionella Antigen - Final PRESUMPTIVE NEGATIVE FOR LEGIONELLA P... Complete Imaging Last Impressions Chest X-Ray 11/19/17 0000 Signed Impressions: Service Date/Time: Sunday, November 19, 2017 17:54 - CONCLUSION: Increased density at the bases likely related to bilateral effusions and accompanying atelectasis or consolidation at the bases. These processes appear worse when compared to the prior exam. Rashel Carmen MD Cholangiopancreatography MRI 11/17/17 0000 Signed Impressions: Service Date/Time: Friday, November 17, 2017 11:28 - CONCLUSION: Moderate biliary ductal dilatation and pancreatic ductal dilatation. Rashel Reyes MD Liver Ultrasound 11/16/17 0000 Signed Impressions: Service Date/Time: Thursday, November 16, 2017 10:37 - CONCLUSION: 1. Dilated main pancreatic duct measuring up to 9 mm. No obstructing mass is clearly seen on today's examination or the prior CT but the duct dilatation extends to the pancreatic head. Consider further evaluation for an occult mass in the pancreatic head once condition permits. Noninvasively this could be obtained with pancreas protocol MRI with and without intravenous contrast to include MRCP images. 2. Dilated common bile duct in this patient post cholecystectomy. The common duct does taper distally on the recent CT without a distal obstructing process identified. 3. There is trace perihepatic free fluid and a small left pleural effusion is visualized. Rashel Lopez MD Chest CT 11/16/17 0000 Signed Impressions: Service Date/Time: Thursday, November 16, 2017 11:33 - CONCLUSION: 1. Moderate severity atelectasis/consolidation at the dependent portions of lower lobes and right middle lobe. 2. Small pleural effusions. 3. Increased peripancreatic edema. Consistent with acute pancreatitis Rex Galeas MD Abdomen/Pelvis CT 11/14/17 1635 Signed Impressions: Service Date/Time: Tuesday, November 14, 2017 17:29 - CONCLUSION: Prominent common duct and pancreatic duct extending into the head of pancreas without focal mass. Correlation is suggested I do not see an etiology for the epigastric pain Moy Johnson MD FACR Physical Exam HEENT: normocephalic; atraumatic; no jaundice. oral cavity clean, Speech clear NECK: Neck is supple, obese CHEST: Breath sounds diminished, Rt. > Lt. bases. No rhonchi/wheezing CARDIAC: Regular rate , labile, 80- 109 ABDOMEN: Mid and Rt. sided discomfort , bowel sounds soft, round, soft EXTREMITIES: Bilateral trace LE edema. SKIN: Normal; no rash; no jaundice.pale ORGAN RECOVERY COORDINATOR: No focal deficits; alert and oriented times three. 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 Consider further evaluation of an occult mass in the pancreatic head wants condition permits dilated common bile duct in this patient post cholecystectomy with recent CT showing no obstructing process identified. Trace of. He hepatic free fluid and a small left pleural effusion. MRCP done on 11/17/2017 showed moderate biliary ductal dilatation and pancreatic ductal dilatation. Labs today show hemoglobin 9.4, WBC count 12.5, lipase returned to normal at 335. Constipation , patient has had some solid food in the past 2 days but no BM since admission, day 6. Discussed the need to follow up with GI after hospital admission completed. Patient lives in the [facility] and will need to find a GI physician for follow-up as well as outpatient EUS. Patient understands process. We will also do CT scan for comparison and follow-up. Plan Diet regular basic Mag citrate 1 dose, if no BM by the a.m. do fleets enema CT scan routine abdomen Monitor labs OP EUS to assess for possibility of underlying papillary stenosis and pancreatic neoplasm. Pain management per attending Supportive care, based on CT scan results any further recommendations to follow , otherwise will need follow GI on an outpatient basis in the [place] area. This patient was seen per myself and Dr. Summers, , note was written on his behalf Problem Qualifiers (1) Acute pancreatitis: Qualified Codes: K85.90 - Acute pancreatitis without necrosis or infection, unspecified Vicky Pastrana November 20, 2017 16:20
[2017-11-20] MEDS ORDERED: MAGNESIUM CITRATE SOLN 300 ML BTL PO ONE (16:30)
--- NOTE | 2017-11-20 19:02 | ECHRPT ---
Indication: Shortness of breath CONCLUSIONS Normal left ventricular size and wall thickness. The left ventricular systolic function is normal wi th an estimated ejection fraction in the range of 60-65%. Left ventricular diastolic function parameters a re normal. Mild mitral valve regurgitation. There is moderate to severe tricuspid valve regurgitation. The estimated pulmonary arterial pressure is 51.7 mmHg. There is a small pericardial effusion present. A small left sided pleural effusion is noted. BP: / HR: Rhythm: Sinus MEASUREMENTS (Male / Female) Normal Values Technical Quality:Good 2D ECHO LV Diastolic Diameter PLAX 3.6 cm 4.2 - 5.9 / 3.9 - 5.3 cm LV Systolic Diameter PLAX 2.6 cm IVS Diastolic Thickness 1.0 cm 0.6 - 1.0 / 0.6 - 0.9 cm LVPW Diastolic Thickness 1.0 cm 0.6 - 1.0 / 0.6 - 0.9 cm LV Relative Wall Thickness 0.6 LVOT Diameter 1.9 cm M-MODE Aortic Root Diameter MM 2.8 cm LA Systolic Diameter MM 5.1 cm LA Ao Ratio MM 1.8 AV Cusp Separation MM 1.7 cm DOPPLER AV Peak Velocity 133.0 cm/s AV Peak Gradient 7.1 mmHg LVOT Peak Velocity 118.0 cm/s LVOT Peak Gradient 5.6 mmHg AV Area Cont Eq pk 2.5 cm MR Peak Velocity 261.0 cm/s MR Peak Gradient 27.2 mmHg Mitral E Point Velocity 79.5 cm/s Mitral A Point Velocity 75.0 cm/s Mitral E to A Ratio 1.1 LV E' Lateral Velocity 7.0 cm/s Mitral E to LV E' Lateral Ratio 11.3 LV E' Septal Velocity 12.7 cm/s Mitral E to LV E' Septal Ratio 6.3 TR Peak Velocity 323.0 cm/s TR Peak Gradient 41.7 mmHg Right Atrial Pressure 10.0 mmHg Pulmonary Artery Systolic Pressu 51.7 mmHg Right Ventricular Systolic Press 51.7 mmHg PV Peak Velocity 99.1 cm/s PV Peak Gradient 3.9 mmHg FINDINGS LEFT VENTRICLE Normal left ventricular size and wall thickness. The left ventricular systolic function is normal wi th an estimated ejection fraction in the range of 60-65%. Left ventricular diastolic function parameters a re normal. RIGHT VENTRICLE Normal right ventricular size and systolic function. LEFT ATRIUM The left atrial size is normal. RIGHT ATRIUM The right atrial size is normal. ATRIAL SEPTUM Normal atrial septal thickness without atrial level shunting by limited color doppler interrogation. AORTA The aortic root and proximal ascending aorta are normal in size on limited imaging. MITRAL VALVE Mild mitral valve regurgitation. AORTIC VALVE Trileaflet aortic valve. No aortic valve stenosis or regurgitation. TRICUSPID VALVE There is moderate to severe tricuspid valve regurgitation. The estimated pulmonary arterial pressure is 51.7 mmHg. PULMONARY VALVE No pulmonary valve regurgitation or stenosis. VESSELS The inferior vena cava is normal in size. PERICARDIUM There is a small pericardial effusion present. A small left sided pleural effusion is noted. Christophe Villegas MD, FACC, FSCAI (Electronically Signed) Final Date:20 Nov 2017 19:01
--- NOTE | 2017-11-20 19:39 | HHI.IDPN ---
Note Infectious Disease Note Patient states that she is continued to have pain in her lower back and also that she feels nausea. She is drinking magnesium citrate. She notes that she has not a bowel movement 6 days. Occasional nonproductive cough. Temperature spiked again this afternoon to 101.6. Temperature was normal throughout the day earlier today. Chest x-ray noted. Increased density at the bases. [place] possibly due to pleural effusions. She is sitting up in a chair. She ambulated the halls earlier. 67-year-old white female who presented to the emergency department on 11/14/2017, with abdominal pain. The patient also developed nausea and also had shortness of breath. Lipase was markedly elevated and she developed fevers. PAST MEDICAL HISTORY: History of pancreatitis, history of mild mitral valve prolapse, anxiety disorder, hysterectomy, cholecystectomy, right knee repair. ALLERGIES: PENICILLIN, CIPROFLOXACIN, HYDROMORPHONE. MEDICATIONS: Current Medications Medications (Trade) Dose Ordered Sig/Katerina Route PRN Reason Start Time Stop Time Status Last Admin Dose Admin Sodium Chloride (NS Flush) 2 ml UNSCH PRN IV FLUSH FLUSH AFTER USING IV ACCESS 11/14/17 18:15 Sodium Chloride (NS Flush) 2 ml BID IV FLUSH 11/14/17 21:00 11/20/17 10:17 Ondansetron HCl (Zofran Inj) 4 mg Q6H PRN IV PUSH NAUSEA OR VOMITING 11/14/17 18:15 11/18/17 03:55 Enoxaparin Sodium (Lovenox Inj) 40 mg Q24H SQ 11/14/17 20:00 11/19/17 20:45 Acetaminophen (Tylenol) 650 mg Q4H PRN PO temp >101 or headache 11/15/17 08:00 11/20/17 15:46 Albuterol/ Ipratropium (Duoneb Neb) 1 ampule Q2HR NEB PRN NEB shortness of breath 11/15/17 11:45 11/20/17 08:00 Lactobacillus Acidophilus (Lactinex) 1 tab Q12HR PO 11/17/17 21:00 11/20/17 07:59 Senna/Docusate Sodium (Vivian-Colace) 1 tab BID PO 11/17/17 21:00 11/20/17 07:59 Magnesium Hydroxide (Milk Of Magnesia Liq) 30 ml Q12H PRN PO Mild constipation 11/17/17 09:45 Sennosides (Senokot) 17.2 mg Q12H PRN PO Moderate constipation 11/17/17 09:45 Bisacodyl (Dulcolax Supp) 10 mg DAILY PRN RECTAL SEVERE CONSITIPATION 11/17/17 09:45 Lactulose (Lactulose Liq) 30 ml DAILY PRN PO SEVERE CONSITIPATION 11/17/17 09:45 Oxycodone/ Acetaminophen (Percocet 7.5-325 Mg) 1 tab Q6H PRN PO PAIN SCALE 1 TO 5 11/18/17 09:00 11/20/17 14:10 Oxycodone/ Acetaminophen (Percocet 10-325 Mg) 1 tab Q6H PRN PO PAIN SCALE 6 TO 10 11/18/17 09:00 11/20/17 08:00 Guaifenesin/ Codeine Phosphate (Robitussin Ac 200-20 Mg/10 ml Liq) 10 ml Q6H PRN PO COUGH 11/18/17 09:00 11/20/17 08:00 Aztreonam 2000 mg/ Sodium Chloride 100 ml @ 200 mls/hr Q8H IV 11/18/17 10:00 11/20/17 18:05 Vancomycin HCl 1000 mg/Sodium Chloride 250 ml @ 250 mls/hr Q12H IV 11/18/17 11:00 11/20/17 13:12 Pharmacy Profile Note 0 ml @ 0 mls/hr UNSCH OTHER 11/18/17 09:00 Alprazolam (Xanax) 0.25 mg Q8H PRN PO ANXIETY 11/18/17 10:45 11/19/17 02:01 Albuterol/ Ipratropium (Duoneb Neb) 1 ampule Q6HR WHILE AWAKE NEB NEB 11/20/17 08:00 11/20/17 13:39 Sodium Biphosphate/ Sodium Phosphate (Fleets Enema (Adult)) 133 ml ONCE ONCE RECTAL 11/21/17 16:30 11/21/17 16:31 Objective: Vital Signs Date Time Temp Pulse Resp B/P (MAP) Pulse Ox O2 Delivery O2 Flow Rate FiO2 11/20/17 16:46 20 11/20/17 16:40 96.3 80 18 132/63 (86) 96 11/20/17 15:10 20 11/20/17 13:41 98 Nasal Cannula 3.00 11/20/17 12:24 96.3 80 18 132/63 (86) 96 11/20/17 09:00 20 11/20/17 08:33 98.0 109 20 136/77 (96) 92 11/20/17 08:07 92 Nasal Cannula 3.00 11/20/17 00:00 98.1 101 21 136/66 (89) 93 11/19/17 20:00 98.8 96 20 123/74 (90) 94 11/19/17 19:44 92 Nasal Cannula 3.00 Laboratory Tests Test 11/19/17 05:45 11/20/17 06:00 White Blood Count 12.4 TH/MM3 12.5 TH/MM3 Red Blood Count 3.24 MIL/MM3 3.13 MIL/MM3 Hemoglobin 9.3 GM/DL 9.4 GM/DL Hematocrit 29.3 % 28.2 % Mean Corpuscular Volume 90.4 FL 90.3 FL Mean Corpuscular Hemoglobin 28.8 PG 29.9 PG Mean Corpuscular Hemoglobin Concent 31.8 % 33.1 % Red Cell Distribution Width 13.2 % 13.0 % Platelet Count 199 TH/MM3 211 TH/MM3 Mean Platelet Volume 9.0 FL 8.5 FL Neutrophils (%) (Auto) 80.0 % 80.8 % Lymphocytes (%) (Auto) 8.5 % 10.5 % Monocytes (%) (Auto) 9.9 % 6.5 % Eosinophils (%) (Auto) 1.3 % 1.8 % Basophils (%) (Auto) 0.3 % 0.4 % Neutrophils # (Auto) 9.9 TH/MM3 10.2 TH/MM3 Lymphocytes # (Auto) 1.1 TH/MM3 1.3 TH/MM3 Monocytes # (Auto) 1.2 TH/MM3 0.8 TH/MM3 Eosinophils # (Auto) 0.2 TH/MM3 0.2 TH/MM3 Basophils # (Auto) 0.0 TH/MM3 0.0 TH/MM3 CBC Comment DIFF FINAL DIFF FINAL Differential Comment Laboratory Tests Test 11/19/17 05:45 11/20/17 06:00 Blood Urea Nitrogen 13 MG/DL 10 MG/DL Creatinine 0.49 MG/DL 0.52 MG/DL Random Glucose 78 MG/DL 89 MG/DL Calcium Level 8.0 MG/DL 8.0 MG/DL Sodium Level 141 MEQ/L 140 MEQ/L Potassium Level 3.8 MEQ/L 3.8 MEQ/L Chloride Level 109 MEQ/L 108 MEQ/L Carbon Dioxide Level 25.4 MEQ/L 24.9 MEQ/L Anion Gap 7 MEQ/L 7 MEQ/L Estimat Glomerular Filtration Rate 126 ML/MIN 118 ML/MIN Lipase 835 U/L 335 U/L Microbiology Date/Time Source Procedure Growth Status 11/18/17 16:57 Blood Peripheral Aerobic Blood Culture - Preliminary NO GROWTH IN 2 DAYS Resulted 11/18/17 16:57 Blood Peripheral Anaerobic Blood Culture - Preliminary NO GROWTH IN 2 DAYS Resulted 11/18/17 18:00 Nasal Aspirate Influenza Types A,B Antigen (KARE[facility]) - Final NEGATIVE FOR FLU A AND B ANTIGEN.... Complete Imaging: Chest X-Ray 11/19/17 0000 Signed Impressions: Service Date/Time: Sunday, November 19, 2017 17:54 - CONCLUSION: Increased density at the bases likely related to bilateral effusions and accompanying atelectasis or consolidation at the bases. These processes appear worse when compared to the prior exam. Rashel Carmen MD Cholangiopancreatography MRI 11/17/17 0000 Signed Impressions: Service Date/Time: Friday, November 17, 2017 11:28 - CONCLUSION: Moderate biliary ductal dilatation and pancreatic ductal dilatation. Rashel Reyes MD Liver Ultrasound 11/16/17 0000 Signed Impressions: Service Date/Time: Thursday, November 16, 2017 10:37 - CONCLUSION: 1. Dilated main pancreatic duct measuring up to 9 mm. No obstructing mass is clearly seen on today's examination or the prior CT but the duct dilatation extends to the pancreatic head. Consider further evaluation for an occult mass in the pancreatic head once condition permits. Noninvasively this could be obtained with pancreas protocol MRI with and without intravenous contrast to include MRCP images. 2. Dilated common bile duct in this patient post cholecystectomy. The common duct does taper distally on the recent CT without a distal obstructing process identified. 3. There is trace perihepatic free fluid and a small left pleural effusion is visualized. Rashel Lopez MD Chest CT 11/16/17 0000 Signed Impressions: Service Date/Time: Thursday, November 16, 2017 11:33 - CONCLUSION: 1. Moderate severity atelectasis/consolidation at the dependent portions of lower lobes and right middle lobe. 2. Small pleural effusions. 3. Increased peripancreatic edema. Consistent with acute pancreatitis Rex Galeas MD Abdomen/Pelvis CT 11/14/17 1635 Signed Impressions: Service Date/Time: Tuesday, November 14, 2017 17:29 - CONCLUSION: Prominent common duct and pancreatic duct extending into the head of pancreas without focal mass. Correlation is suggested I do not see an etiology for the epigastric pain Moy Johnson MD FACR Chest X-Ray 11/14/17 0000 Signed Impressions: Service Date/Time: Tuesday, November 14, 2017 16:56 - CONCLUSION: Minimal bibasilar parenchymal changes. Moy Johnson MD FACR PHYSICAL EXAMINATION: GENERAL: Awake and alert. HEENT: Head is atraumatic. Extraocular movements grossly intact. Pupils reactive to light. No icterus. Oropharynx: Moist mucosa without lesions. NECK: Supple. No adenopathy. LUNGS: Breath sounds decreased bilateral. CARDIOVASCULAR: Regular rate and rhythm. No murmurs, rubs or gallops. ABDOMEN: Bowel sounds present. Soft. Tenderness across the mid abdomen. BACK: Tenderness on palpation of the lower back. EXTREMITIES: No clubbing or cyanosis or edema. SKIN: No rash. NEUROLOGIC: No gross focal findings. PSYCHIATRIC: Calm and cooperative. IMPRESSION: 1. Fever and leukocytosis in patient with abdominal pain. Temperatures are likely related to pancreatitis. However she continues to have daily spikes and could be developing an intra- abdominal phlegmon or abscess. 2. Acute pancreatitis. 3. ANTIBIOTIC ALLERGIES. Possible drug fever related to antibiotics. 4. Abnormal chest x-ray appears to be pleural effusions. RECOMMENDATIONS: 1. Continue vancomycin. 2. Discontinue aztreonam since it is a mono lactam antibiotic and could cause fever as well. 3. Agree with repeat CT scan of the abdomen. 4. Add metronidazole. 5. Monitor the temperatures. 6. Obtain sputum culture if feasible. Tony Lieberman MD November 20, 2017 19:39
[2017-11-20] MEDS ORDERED: DIATRIZOATE MEGLUM/DIATRIZOATE SOD 9 ML CUP PO ONE (20:00)
[2017-11-20] MEDS: ENOXAPARIN SODIUM 40 MG/0.4 ML SYRINGE SQ SCH (22:02)
[2017-11-20] MEDS: metroNIDAZOLE 500 MG INJ 100 ML IV SCH (22:02)
[2017-11-21] VITALS (8 sets, daily range): BP systolic 126–150; BP diastolic 59–84; PULSE 80–101; RESP 19–20; TEMP 97.9–99.4; O2SAT 89–96
[2017-11-21] MEDS ORDERED: IOHEXOL 350 MG/ML 10 ML VIAL (for RAD DIAG) IVCONTRAST ONE (00:11)
--- NOTE | 2017-11-21 00:41 | RADRPT ---
EXAM DATE/TIME: 11/21/2017 00:16 [facility] COMPARISON: CHEST PA & LAT, November 19, 2017, 17:54. INDICATIONS : Shortness of breath MEDICAL HISTORY : Pancreatitis. Mitral valve prolapse SURGICAL HISTORY : Cholecystectomy. Hysterectomy. ENCOUNTER: Subsequent ACUITY: 1 week PAIN SCORE: 0/10 LOCATION: Bilateral chest FINDINGS: PA and lateral views of the chest demonstrate bibasilar densities. Small pleural effusions. The cardi omediastinal contours are unremarkable. Osseous structures are intact. CONCLUSION: Small pleural effusions and probable bibasilar atelectasis. Josh Awad MD on November 21, 2017 at 0:39 Board Certified Radiologist. This report was verified electronically.
--- NOTE | 2017-11-21 00:41 | RADRPT ---
EXAM DATE/TIME: 11/21/2017 00:04 [facility] COMPARISON: No previous studies available for comparison. INDICATIONS : Upper abdominal pain; possible pancreatitis. IV CONTRAST: 93 cc Omnipaque 350 (iohexol) IV ORAL CONTRAST: Partial prescribed oral contrast ingested. RADIATION DOSE: 15.20 CTDIvol (mGy) MEDICAL HISTORY : Pancreatitis. Mitral valve prolapse SURGICAL HISTORY : Cholecystectomy. Hysterectomy. ENCOUNTER: Subsequent ACUITY: 1 week PAIN SCALE: 5/10 LOCATION: Abdomen TECHNIQUE: Volumetric scanning of the abdomen was performed. Using automated exposure control and adjustment of the mA and/or kV according to patient size, radiation dose was kept as low as reasonably achievable to obtain optimal diagnostic quality images. DICOM format image data is available electronically for review and comparison. FINDINGS: LOWER LUNGS: Small bilateral pleural effusions and bibasilar consolidation LIVER: Homogeneous density without lesion. There is no dilation of the biliary tree. Cholecystectomy clips. SPLEEN: Normal size without lesion. PANCREAS: Diffuse inflammatory change.. KIDNEYS: Normal in size and shape. There is no mass, stone, or hydronephrosis. ADRENAL GLANDS: Within normal limits. AORTA/RETROPERITONEAL: There is no aneurysm or lymphadenopathy. BOWEL/MESENTERY: The stomach and visualized small and large bowel demonstrate no abnormality. ABDOMINAL WALL: Within normal limits. MUSCULOSKELETAL: Within normal limits for patient age. POST CONTRAST: No abnormal areas of enhancement are seen. CONCLUSION: 1. Siz inflammatory changes in the pancreas consistent with pancreatitis. 2. Bibasilar consolidation and small pleural effusions. 3. Status post cholecystectomy. Josh Awad MD on November 21, 2017 at 0:38 Board Certified Radiologist. This report was verified electronically.
[2017-11-21] MEDS: metroNIDAZOLE 500 MG INJ 100 ML IV SCH ×3 (04:29→20:15)
[2017-11-21] MEDS: oxyCODONE/ACETAMINOPHEN 7.5 MG/325 MG TAB PO PRN ×3 (06:04→20:15)
[2017-11-21 06:58] LABS: AUTOMATED NEUTROPHIL # 9.3 TH/MM3 (1.8-7.7); BASOPHIL % 0.2 % (0.0-2.0); EOSINOPHIL # 0.2 TH/MM3 (0-0.4); EOSINOPHIL % 1.9 % (0.0-4.0); HEMOGLOBIN 10.1 GM/DL (11.6-15.3); LYMPHOCYTE # 1.4 TH/MM3 (1.0-4.8); MEAN CELL VOLUME 90.1 FL (80.0-100.0); MEAN CORPUSCULAR HEMOGLOBIN 29.3 PG (27.0-34.0); MEAN CORPUSCULAR HGB CONC 32.6 % (32.0-36.0); MEAN PLATELET VOLUME 8.6 FL (7.0-11.0); MONO % 9.3 % (0.0-8.0); MONOCYTE # 1.1 TH/MM3 (0-0.9); NEUT % 76.6 % (16.0-70.0); PLATELET COUNT 257 TH/MM3 (150-450); RED BLOOD COUNT 3.44 MIL/MM3 (4.00-5.30); RED CELL DISTRIBUTION WIDTH 12.9 % (11.6-17.2)
[2017-11-21 07:06] LABS: BICARBONATE 30.6 MEQ/L (21.0-32.0); CALCIUM 8.1 MG/DL (8.5-10.1)
[2017-11-21 07:09] LABS: CREATININE 0.57 MG/DL (0.50-1.00)
[2017-11-21] MEDS: RESP: ALBUTEROL 2.5 MG/IPRATROPIUM 0.5 MG NEB (SCH) NEB ×3 (07:44→20:41)
[2017-11-21] MEDS ORDERED: POTASSIUM CHLORIDE 20 MEQ CONTROLLED RELEASE TAB PO ONE (08:00)
[2017-11-21] MEDS: DOCUSATE SODIUM 50 MG/SENNA 8.6 MG TAB PO SCH ×2 (08:28→20:15)
[2017-11-21] MEDS: LACTOBACILLUS ACIDOPHILUS TAB PO SCH ×2 (08:29→20:14)
[2017-11-21] MEDS: SODIUM CHLORIDE 0.9% FLUSH 10 ML FLUSH IV FLUSH SCH ×2 (08:29→20:15)
[2017-11-21] MEDS ORDERED: OXYGENDME NAS.CANULA (10:57)
[2017-11-21] MEDS: VANCOMYCIN INJ 1,250 MG in SODIUM CHLOR 0.9% 250 ML INJ 250 ML IV SCH ×2 (11:00→23:52)
[2017-11-21] MEDS: ONDANSETRON HCL 4 MG/2 ML VIAL IV PUSH PRN (12:05)
--- NOTE | 2017-11-21 12:58 | HHI.PR ---
Subjective Remarks Patient seen and examined today for follow-up on pancreatitis, pleural effusion , hypoxia. Patient is doing much better. She is now down to 2 L nasal cannula. Patient has had a fever within the last 24 hours of 101.0. Infectious disease still following the patient and adjusted antibiotics. Patient is resting comfortably. Patient states now that she developed mild ulceration on her lip. Otherwise abdominal pain is controlled. Discussed with patient that she can get up and walk around which would be better for her at this time. Vital signs are stable. Objective Vitals Vital Signs Date Time Temp Pulse Resp B/P (MAP) Pulse Ox O2 Delivery O2 Flow Rate FiO2 11/21/17 12:00 98.0 80 20 126/59 (81) 95 11/21/17 08:00 99.2 85 20 132/61 (84) 95 11/21/17 07:45 94 Nasal Cannula 2.00 11/21/17 04:45 99.4 82 20 142/77 (98) 96 11/21/17 01:17 98.8 101 20 138/71 (93) 95 11/20/17 20:00 100.4 97 20 157/83 (107) 90 11/20/17 19:37 97 Nasal Cannula 2.00 11/20/17 16:46 20 11/20/17 16:40 96.3 80 18 132/63 (86) 96 11/20/17 15:10 20 11/20/17 13:41 98 Nasal Cannula 3.00 I/O 11/20/17 11/20/17 11/20/17 11/21/17 11/21/17 11/21/17 07:00 15:00 23:00 07:00 15:00 23:00 Intake Total 1230 ml 100 ml 1070 ml 120 ml 870 ml Output Total 500 ml 0 ml 500 ml Balance 730 ml 100 ml 1070 ml 120 ml 370 ml Intake Oral 480 ml 720 ml 120 ml 870 ml IV Total 750 ml 100 ml 350 ml Output Urine Total 500 ml 500 ml Stool Total 0 ml # Voids 4 8 8 # Bowel Movements 0 Result Diagram: 11/21/1751911/21/17519 Objective Remarks GENERAL: Well-developed, well-nourished, in no acute distress. alert and orientated HEENT: Head is normocephalic without any lesions or masses noted. Facial features are symmetric. Eyes: Extraocular muscles are intact. Conjunctivae were clear. Right lower lip has small area of ulceration NECK: Supple without any masses. Trachea midline no deviation. No JVD, CARDIAC: Regular rhythm, regular rate. S1/S2 are heard. No murmurs gallops or rubs. LUNGS: Clear to auscultation bilaterally. No wheeze, rhonchi or rales. No use of accessory muscles on inspiration or expiration. ABDOMEN: Soft, nontender. Nondistended. Bowel sounds heard in all 4 quadrants. No organomegaly or masses. Negative rebound, negative guarding EXTREMITIES: No edema, pulses are equal bilaterally. No cyanosis or clubbing NEUROLOGY: Mood and affect appear appropriate. Cranial nerves II through XII grossly intact. Moving all extremities, speech is clear Urinary Catheter: No Vascular Central Line Catheter: No A/P Assessment and Plan Sepsis, resolved -Patient now afebrile, leukocytosis is improving, tachycardic, atelectasis versus consolidation in the bilateral lung -Likely secondary to pancreatitis, but infectious process is also possibility with possible pneumonia -Patient was previously on Rocephin, Zithromax, cefepime, Azactam -Continue vancomycin, Flagyl Hypoxic respiratory insufficiency -Continue O2 supplementation maintain O2 sats greater than 92% -Continue duo nebs every 6 hours while awake, every 2 hours as needed -Incentive spirometry, Acapella -Chest x-ray did indicate increased basilar fluid, atelectasis, consolidation -Give Lasix 40 mg IV 1 -Echocardiogram indicates severe tricuspid regurgitation, pulmonary hypertension PA peak pressure 51 -Follow-up chest x-ray tomorrow morning Persistent febrile illness, -Original blood cultures have remained negative for 4 days, Legionella testing was negative -Influenza testing was negative -Repeat blood cultures are negative for 3 day -Awaiting sputum culture -Consulted infectious disease Acute pancreatitis unknown etiology, resolved -Patient presented with diffuse abdominal pain, nausea and vomiting -Lipase 13,000 on presentation. Trending downward. Liver enzymes within normal limits. -Abdomen/pelvis CT reviewed showing prominent common duct and pancreatic duct extending to the head of the pancreas without focal mass. -MRCP was performed which did show moderate biliary ductal dilatation and pancreatic ductal dilatation. Without any mass -Patient tolerating p.o. at this time, advanced to regular diet -GI consulted who recommending EUS in an outpatient setting -Continue IV fluids at this time -Continue p.o. Percocet -Patient did have mildly elevated CA-19-9, however no mass was appreciated, could be reactive to acute pancreatitis -Awaiting records from previous hospitalizations and treatment from [facility]. -Follow-up CT of the abdomen did not indicate any new finding. Still indicating signs of pancreatitis Community acquired pneumonia with hypoxia -Chest CT reviewed showing moderate severity atelectasis/consolidation of the dependent portions of the lower lobes and right middle lobe. Small pleural effusions. -Supplemental O2 as needed to maintain O2 sats greater than 92%. -Duo nebs scheduled and as needed for shortness of breath. -Continue Robitussin-AC for cough suppression -Instructed patient on importance of incentive spirometry DVT prophylaxis: -Sequential compression devices -Subcutaneous Lovenox Discharge Planning Discharge planning in 24-48 hours depending on patient's response to treatment, patient remains afebrile, enzymes continue to trend down Harry Sherman November 21, 2017 12:58
[2017-11-21] MEDS ORDERED: SOD PHOSPHATE/SOD BIPHOSPHATE (ADULT) ENEMA 133ML RECTAL ONE (16:30)
--- NOTE | 2017-11-21 17:46 | HHI.IDPN ---
Note Infectious Disease Note She states that the pain in the lower back is still present. She thinks it is up it is about the same. She has no nausea. She did taken a little bit of food and states that approximately 2 hours later she developed some nausea. Occasional nonproductive cough. Temperature has been normal so far today. CT scan of the abdomen did not show any pseudocyst. 67-year-old white female who presented to the emergency department on 11/14/2017, with abdominal pain. The patient also developed nausea and also had shortness of breath. Lipase was markedly elevated and she developed fevers. PAST MEDICAL HISTORY: History of pancreatitis, history of mild mitral valve prolapse, anxiety disorder, hysterectomy, cholecystectomy, right knee repair. ALLERGIES: PENICILLIN, CIPROFLOXACIN, HYDROMORPHONE. MEDICATIONS: Current Medications Medications (Trade) Dose Ordered Sig/Katerina Route PRN Reason Start Time Stop Time Status Last Admin Dose Admin Sodium Chloride (NS Flush) 2 ml UNSCH PRN IV FLUSH FLUSH AFTER USING IV ACCESS 11/14/17 18:15 Sodium Chloride (NS Flush) 2 ml BID IV FLUSH 11/14/17 21:00 11/21/17 08:29 Ondansetron HCl (Zofran Inj) 4 mg Q6H PRN IV PUSH NAUSEA OR VOMITING 11/14/17 18:15 11/21/17 12:05 Enoxaparin Sodium (Lovenox Inj) 40 mg Q24H SQ 11/14/17 20:00 11/20/17 22:02 Acetaminophen (Tylenol) 650 mg Q4H PRN PO temp >101 or headache 11/15/17 08:00 11/20/17 15:46 Albuterol/ Ipratropium (Duoneb Neb) 1 ampule Q2HR NEB PRN NEB shortness of breath 11/15/17 11:45 11/20/17 08:00 Lactobacillus Acidophilus (Lactinex) 1 tab Q12HR PO 11/17/17 21:00 11/21/17 08:29 Senna/Docusate Sodium (Vivian-Colace) 1 tab BID PO 11/17/17 21:00 11/21/17 08:28 Magnesium Hydroxide (Milk Of Magnesia Liq) 30 ml Q12H PRN PO Mild constipation 11/17/17 09:45 Sennosides (Senokot) 17.2 mg Q12H PRN PO Moderate constipation 11/17/17 09:45 Bisacodyl (Dulcolax Supp) 10 mg DAILY PRN RECTAL SEVERE CONSITIPATION 11/17/17 09:45 Lactulose (Lactulose Liq) 30 ml DAILY PRN PO SEVERE CONSITIPATION 11/17/17 09:45 Oxycodone/ Acetaminophen (Percocet 7.5-325 Mg) 1 tab Q6H PRN PO PAIN SCALE 1 TO 5 11/18/17 09:00 11/21/17 12:05 Oxycodone/ Acetaminophen (Percocet 10-325 Mg) 1 tab Q6H PRN PO PAIN SCALE 6 TO 10 11/18/17 09:00 11/20/17 08:00 Guaifenesin/ Codeine Phosphate (Robitussin Ac 200-20 Mg/10 ml Liq) 10 ml Q6H PRN PO COUGH 11/18/17 09:00 11/20/17 08:00 Pharmacy Profile Note 0 ml @ 0 mls/hr UNSCH OTHER 11/18/17 09:00 Alprazolam (Xanax) 0.25 mg Q8H PRN PO ANXIETY 11/18/17 10:45 11/19/17 02:01 Albuterol/ Ipratropium (Duoneb Neb) 1 ampule Q6HR WHILE AWAKE NEB NEB 11/20/17 08:00 11/21/17 14:17 Metronidazole 100 ml @ 100 mls/hr Q8H IV 11/20/17 21:00 11/21/17 12:06 Vancomycin HCl 1250 mg/Sodium Chloride 262.5 ml @ 250 mls/hr Q12H IV 11/21/17 11:00 11/21/17 11:00 Miscellaneous Information ([facility] Ordered Lab Info) SPECIFIC LAB TO BE [facility]IT[facility]... ONCE ONCE .XX 11/22/17 22:45 11/22/17 22:46 Objective: Vital Signs Date Time Temp Pulse Resp B/P (MAP) Pulse Ox O2 Delivery O2 Flow Rate FiO2 11/21/17 16:00 97.9 89 20 126/60 (82) 95 11/21/17 13:05 20 11/21/17 12:00 98.0 80 20 126/59 (81) 95 11/21/17 08:00 99.2 85 20 132/61 (84) 95 11/21/17 07:45 94 Nasal Cannula 2.00 11/21/17 04:45 99.4 82 20 142/77 (98) 96 11/21/17 01:17 98.8 101 20 138/71 (93) 95 11/20/17 20:00 100.4 97 20 157/83 (107) 90 11/20/17 19:37 97 Nasal Cannula 2.00 Laboratory Tests Test 11/20/17 06:00 11/21/17 05:20 White Blood Count 12.5 TH/MM3 12.0 TH/MM3 Red Blood Count 3.13 MIL/MM3 3.44 MIL/MM3 Hemoglobin 9.4 GM/DL 10.1 GM/DL Hematocrit 28.2 % 31.0 % Mean Corpuscular Volume 90.3 FL 90.1 FL Mean Corpuscular Hemoglobin 29.9 PG 29.3 PG Mean Corpuscular Hemoglobin Concent 33.1 % 32.6 % Red Cell Distribution Width 13.0 % 12.9 % Platelet Count 211 TH/MM3 257 TH/MM3 Mean Platelet Volume 8.5 FL 8.6 FL Neutrophils (%) (Auto) 80.8 % 76.6 % Lymphocytes (%) (Auto) 10.5 % 12.0 % Monocytes (%) (Auto) 6.5 % 9.3 % Eosinophils (%) (Auto) 1.8 % 1.9 % Basophils (%) (Auto) 0.4 % 0.2 % Neutrophils # (Auto) 10.2 TH/MM3 9.3 TH/MM3 Lymphocytes # (Auto) 1.3 TH/MM3 1.4 TH/MM3 Monocytes # (Auto) 0.8 TH/MM3 1.1 TH/MM3 Eosinophils # (Auto) 0.2 TH/MM3 0.2 TH/MM3 Basophils # (Auto) 0.0 TH/MM3 0.0 TH/MM3 CBC Comment DIFF FINAL DIFF FINAL Differential Comment Laboratory Tests Test 11/20/17 06:00 11/21/17 05:20 Blood Urea Nitrogen 10 MG/DL 8 MG/DL Creatinine 0.52 MG/DL 0.57 MG/DL Random Glucose 89 MG/DL 84 MG/DL Calcium Level 8.0 MG/DL 8.1 MG/DL Sodium Level 140 MEQ/L 139 MEQ/L Potassium Level 3.8 MEQ/L 3.3 MEQ/L Chloride Level 108 MEQ/L 102 MEQ/L Carbon Dioxide Level 24.9 MEQ/L 30.6 MEQ/L Anion Gap 7 MEQ/L 6 MEQ/L Estimat Glomerular Filtration Rate 118 ML/MIN 106 ML/MIN Lipase 335 U/L 237 U/L Microbiology Date/Time Source Procedure Growth Status 11/21/17 10:26 Sputum Expectorated Sputum Gram Stain Pending Received 11/21/17 10:26 Sputum Expectorated Sputum Sputum Culture Pending Received 11/18/17 18:00 Nasal Aspirate Influenza Types A,B Antigen (KAREEM) - Final NEGATIVE FOR FLU A AND B ANTIGEN.... Complete Imaging: Chest X-Ray 11/21/17 0000 Signed Impressions: Service Date/Time: Tuesday, November 21, 2017 00:16 - CONCLUSION: Small pleural effusions and probable bibasilar atelectasis. Josh Awad MD Abdomen CT 11/20/17 0000 Signed Impressions: Service Date/Time: Tuesday, November 21, 2017 00:04 - CONCLUSION: 1. Siz inflammatory changes in the pancreas consistent with pancreatitis. 2. Bibasilar consolidation and small pleural effusions. 3. Status post cholecystectomy. Josh Awad MD Chest X-Ray 11/19/17 0000 Signed Impressions: Service Date/Time: Sunday, November 19, 2017 17:54 - CONCLUSION: Increased density at the bases likely related to bilateral effusions and accompanying atelectasis or consolidation at the bases. These processes appear worse when compared to the prior exam. Rashel Carmen MD Cholangiopancreatography MRI 11/17/17 0000 Signed Impressions: Service Date/Time: Friday, November 17, 2017 11:28 - CONCLUSION: Moderate biliary ductal dilatation and pancreatic ductal dilatation. Rashel Reyes MD Liver Ultrasound 11/16/17 0000 Signed Impressions: Service Date/Time: Thursday, November 16, 2017 10:37 - CONCLUSION: 1. Dilated main pancreatic duct measuring up to 9 mm. No obstructing mass is clearly seen on today's examination or the prior CT but the duct dilatation extends to the pancreatic head. Consider further evaluation for an occult mass in the pancreatic head once condition permits. Noninvasively this could be obtained with pancreas protocol MRI with and without intravenous contrast to include MRCP images. 2. Dilated common bile duct in this patient post cholecystectomy. The common duct does taper distally on the recent CT without a distal obstructing process identified. 3. There is trace perihepatic free fluid and a small left pleural effusion is visualized. Rashel Lopez MD Chest CT 11/16/17 0000 Signed Impressions: Service Date/Time: Thursday, November 16, 2017 11:33 - CONCLUSION: 1. Moderate severity atelectasis/consolidation at the dependent portions of lower lobes and right middle lobe. 2. Small pleural effusions. 3. Increased peripancreatic edema. Consistent with acute pancreatitis Rex Galeas MD Abdomen/Pelvis CT 11/14/17 1635 Signed Impressions: Service Date/Time: Tuesday, November 14, 2017 17:29 - CONCLUSION: Prominent common duct and pancreatic duct extending into the head of pancreas without focal mass. Correlation is suggested I do not see an etiology for the epigastric pain Moy Johnson MD FACR Chest X-Ray 11/14/17 0000 Signed Impressions: Service Date/Time: Tuesday, November 14, 2017 16:56 - CONCLUSION: Minimal bibasilar parenchymal changes. Moy Johnson MD FACR PHYSICAL EXAMINATION: GENERAL: Awake and alert. HEENT: Head is atraumatic. Extraocular movements grossly intact. Pupils reactive to light. No icterus. Oropharynx: Moist mucosa without lesions. NECK: Supple. No adenopathy. LUNGS: Breath sounds are decreased. CARDIOVASCULAR: Regular rate and rhythm. No murmurs, rubs or gallops. ABDOMEN: Bowel sounds present. Soft. Very little tenderness across the mid abdomen. BACK: Tenderness on palpation of the lower back. Away from the spine. EXTREMITIES: No clubbing or cyanosis or edema. SKIN: No rash. NEUROLOGIC: No gross focal findings. PSYCHIATRIC: Calm and cooperative. IMPRESSION: 1. Fever and leukocytosis in patient with abdominal pain. Temperatures are likely related to pancreatitis. No abscess or phlegmon seen on CT scan of the abdomen was repeated yesterday. 2. Acute pancreatitis. 3. ANTIBIOTIC ALLERGIES. Possible drug fever related to antibiotics. 4. Abnormal chest x-ray appears to be pleural effusions. RECOMMENDATIONS: The temperature is lower. If the temperature remains normal stop the vancomycin and Metronidazole and observe the temperature. If it stays away for 24 hours without antibiotics and she is improved She can be discharged without antibiotics. If the temperature comes back on stopping antibiotics I would give oral metronidazole And oral doxycycline. If the sputum shows bacteria she can be placed on antibiotics to cover organisms involved. Tony Lieberman MD November 21, 2017 17:46
[2017-11-21] MEDS: ENOXAPARIN SODIUM 40 MG/0.4 ML SYRINGE SQ SCH (20:15)
[2017-11-21] MEDS ORDERED: MORPHINE SULFATE 4 MG/ML INJ IV PUSH ONE (23:15)
[2017-11-22] VITALS (7 sets, daily range): BP systolic 142–177; BP diastolic 67–81; PULSE 80–99; RESP 19–20; TEMP 97.6–100.7; O2SAT 93–98
[2017-11-22] MEDS: oxyCODONE/ACETAMINOPHEN 10 MG/325 MG TAB PO PRN ×4 (02:53→21:39)
[2017-11-22] MEDS: metroNIDAZOLE 500 MG INJ 100 ML IV SCH (04:57)
[2017-11-22] MEDS: RESP: ALBUTEROL 2.5 MG/IPRATROPIUM 0.5 MG NEB (SCH) NEB ×3 (07:37→19:45)
[2017-11-22] MEDS: SODIUM CHLORIDE 0.9% FLUSH 10 ML FLUSH IV FLUSH SCH ×2 (09:00→21:36)
[2017-11-22] MEDS: LACTOBACILLUS ACIDOPHILUS TAB PO SCH ×2 (09:27→21:35)
[2017-11-22] MEDS: DOCUSATE SODIUM 50 MG/SENNA 8.6 MG TAB PO SCH ×2 (09:28→21:35)
[2017-11-22] MEDS ORDERED: FUROSEMIDE 20 MG/2 ML VIAL IV PUSH ONE ×2 (10:15→20:00)
--- NOTE | 2017-11-22 12:00 | HHI.PR ---
Subjective Remarks Patient seen and evaluated today in follow-up for recurrent fever in the setting of pancreatitis. She appears to have some atelectasis and splinting. As well as volume overload from IV hydration. Care plan discussed with patient, Satnam RN and family at bedside. Objective Vitals Vital Signs Date Time Temp Pulse Resp B/P (MAP) Pulse Ox O2 Delivery O2 Flow Rate FiO2 11/22/17 08:00 97.6 92 20 142/75 (97) 96 11/22/17 07:37 93 Nasal Cannula 2.00 11/22/17 03:53 20 11/22/17 01:20 100.7 99 20 159/81 (107) 97 11/22/17 00:07 20 11/21/17 21:15 20 11/21/17 20:40 95 21 11/21/17 20:26 98.9 96 19 150/84 (106) 89 11/21/17 16:00 97.9 89 20 126/60 (82) 95 11/21/17 12:00 98.0 80 20 126/59 (81) 95 I/O 11/21/17 11/21/17 11/21/17 11/22/17 11/22/17 11/22/17 06:59 14:59 22:59 06:59 14:59 22:59 Intake Total 120 ml 870 ml 1350 ml 120 ml Output Total 500 ml 900 ml Balance 120 ml 370 ml 450 ml 120 ml Intake Oral 120 ml 870 ml 1000 ml 120 ml IV Total 350 ml Output Urine Total 500 ml 900 ml # Voids 8 1 2 # Bowel Movements 1 Result Diagram: 11/21/17 0520 11/21/17 0520 Imaging Last Impressions Chest X-Ray 11/21/17 0000 Signed Impressions: Service Date/Time: Tuesday, November 21, 2017 00:16 - CONCLUSION: Small pleural effusions and probable bibasilar atelectasis. Josh Awad MD Abdomen CT 11/20/17 0000 Signed Impressions: Service Date/Time: Tuesday, November 21, 2017 00:04 - CONCLUSION: 1. Siz inflammatory changes in the pancreas consistent with pancreatitis. 2. Bibasilar consolidation and small pleural effusions. 3. Status post cholecystectomy. Josh Aawd MD Cholangiopancreatography MRI 11/17/17 0000 Signed Impressions: Service Date/Time: Friday, November 17, 2017 11:28 - CONCLUSION: Moderate biliary ductal dilatation and pancreatic ductal dilatation. Rashel Reyes MD Liver Ultrasound 11/16/17 0000 Signed Impressions: Service Date/Time: Thursday, November 16, 2017 10:37 - CONCLUSION: 1. Dilated main pancreatic duct measuring up to 9 mm. No obstructing mass is clearly seen on today's examination or the prior CT but the duct dilatation extends to the pancreatic head. Consider further evaluation for an occult mass in the pancreatic head once condition permits. Noninvasively this could be obtained with pancreas protocol MRI with and without intravenous contrast to include MRCP images. 2. Dilated common bile duct in this patient post cholecystectomy. The common duct does taper distally on the recent CT without a distal obstructing process identified. 3. There is trace perihepatic free fluid and a small left pleural effusion is visualized. Rashel Lopez MD Chest CT 11/16/17 0000 Signed Impressions: Service Date/Time: Thursday, November 16, 2017 11:33 - CONCLUSION: 1. Moderate severity atelectasis/consolidation at the dependent portions of lower lobes and right middle lobe. 2. Small pleural effusions. 3. Increased peripancreatic edema. Consistent with acute pancreatitis Rex Galeas MD Abdomen/Pelvis CT 11/14/17 1635 Signed Impressions: Service Date/Time: Tuesday, November 14, 2017 17:29 - CONCLUSION: Prominent common duct and pancreatic duct extending into the head of pancreas without focal mass. Correlation is suggested I do not see an etiology for the epigastric pain Moy Johnson MD FACR Objective Remarks GENERAL: This is a well-nourished, well-developed patient, in no apparent distress. CARDIOVASCULAR: Regular rate and rhythm without murmurs, gallops, or rubs. RESPIRATORY: Clear to auscultation. Breath sounds equal bilaterally. No wheezes , rales, or rhonchi. GASTROINTESTINAL: Abdomen soft, non-tender, nondistended. Normal active bowel sounds MUSCULOSKELETAL: Extremities without clubbing, cyanosis, or edema. NEURO: Alert & Oriented x4 to person, place, time, situation. Moves all ext x4 A/P Problem List: (1) Pneumonia ICD Code: J18.9 - Pneumonia, unspecified organism Plan: T-max 100.7. Blood cultures are negative. Patient was treated empirically for pneumonia although clinically and on my review of the chest x- ray she appears to have atelectasis. She has appear to have pleural effusions and volume overload at this time. Continue with close observation and drug holiday due to recurrent fevers. Incentive spirometry (2) Acute pancreatitis ICD Code: K85.90 - Acute pancreatitis without necrosis or infection, unspecified Status: Acute Plan: Improved today. Patient noted some pain with her diet. Lipase improved. 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 Discussed with Satnam RN. Will try IV Lasix 1 Discharge Planning Follow off antibiotics, monitor progress Home 1-2 days pending progress Problem Qualifiers (1) Acute pancreatitis: Qualified Codes: K85.90 - Acute pancreatitis without necrosis or infection, unspecified Carly Montoya MD November 22, 2017 12:00
[2017-11-22] MEDS ORDERED: FUROSEMIDE 20 MG TAB PO ONE (16:30)
[2017-11-22] MEDS: ENOXAPARIN SODIUM 40 MG/0.4 ML SYRINGE SQ SCH (21:36)
[2017-11-22] MEDS ORDERED: PHARMACY ORDERED LAB ONE (22:45)
[2017-11-23] VITALS: BP 163/68; PULSE 103; RESP 20; TEMP 98.8; O2SAT 92
[2017-11-23] MEDS: oxyCODONE/ACETAMINOPHEN 10 MG/325 MG TAB PO PRN ×2 (03:21→09:16)
[2017-11-23 07:31] LABS: AUTOMATED NEUTROPHIL # 11.1 TH/MM3 (1.8-7.7); BASOPHIL % 0.1 % (0.0-2.0); EOSINOPHIL # 0.2 TH/MM3 (0-0.4); EOSINOPHIL % 1.2 % (0.0-4.0); HEMATOCRIT 29.3 % (35.0-46.0); LYMPH % 12.8 % (9.0-44.0); LYMPHOCYTE # 1.8 TH/MM3 (1.0-4.8); MEAN CELL VOLUME 89.9 FL (80.0-100.0); MEAN CORPUSCULAR HEMOGLOBIN 30.6 PG (27.0-34.0); MEAN PLATELET VOLUME 8.4 FL (7.0-11.0); MONO % 6.4 % (0.0-8.0); MONOCYTE # 0.9 TH/MM3 (0-0.9); NEUT % 79.5 % (16.0-70.0); PLATELET COUNT 343 TH/MM3 (150-450); RED BLOOD COUNT 3.26 MIL/MM3 (4.00-5.30); RED CELL DISTRIBUTION WIDTH 13.7 % (11.6-17.2)
[2017-11-23] MEDS: RESP: ALBUTEROL 2.5 MG/IPRATROPIUM 0.5 MG NEB (SCH) NEB (07:35)
[2017-11-23 07:38] VITALS: O2SAT 96
[2017-11-23 08:00] VITALS: BP_SYST 151; BP_SYST 166; BP_DIAS 70; BP_DIAS 72; PULSE 19; PULSE 76; RESP 20; TEMP 96.9; TEMP 98.7; O2SAT 97
[2017-11-23 08:00] LABS: BICARBONATE 31.9 MEQ/L (21.0-32.0); CALCIUM 8.1 MG/DL (8.5-10.1)
[2017-11-23 08:04] LABS: CREATININE 0.57 MG/DL (0.50-1.00)
[2017-11-23] MEDS ORDERED: Albuterol-Ipratropium Neb NEB (08:16)
[2017-11-23] MEDS ORDERED: PERC5TAB12 PO (08:16)
--- NOTE | 2017-11-23 08:20 | HHI.DS ---
Discharge Summary Admission Date November 14, 2017 at 18:19 Discharge Date: November 23, 2017 Admitting Diagnosis Acute pancreatitis (1) Pneumonia ICD Code: J18.9 - Pneumonia, unspecified organism (2) Acute pancreatitis ICD Code: K85.90 - Acute pancreatitis without necrosis or infection, unspecified Status: Acute (3) Pleural effusion ICD Code: J90 - Pleural effusion, not elsewhere classified Procedures None Brief History - From Admission This is a pleasant 67-year-old female patient with a known medical history of pancreatitis who presented to the ED with complaints of abdominal pain, nausea and vomiting. Patient states her symptoms started yesterday afternoon with her abdominal pain in her left upper quadrant and bandlike across her abdomen as well as radiation up her midsternal chest. Patient does admit to subjective fevers, although she did not check how high it was. Admits to chills as well as intermittent shortness of breath. Does admit to taking Tylenol and Ativan for her symptoms which mildly improved. Patient denies any headache, diarrhea or dysuria. Patient does admit to multiple episodes of pancreatitis several years ago including a perforation in 1999 during the ERCP. Patient's last episode was 2 years ago. Does not follow with a watch dial maker, patient is from [place]. PCP is Dr. Garcia, patient is from [place] [id number]. Supposedly she did have a recent diagnosis of UTI, was never given antibiotics and it cleared on its own reportedly. Patient denies any recent alcohol use, states she did have a birthday constitution party and drank 2 drinks over the weekends. Does not drink frequently, only on special occasions. CBC/BMP: 11/23/17 0603 11/23/17 0603 Significant Findings Laboratory Tests Test 11/20/17 11:00 11/21/17 05:20 11/23/17 06:03 Vancomycin Level Trough 10.4 MCG/ML (5.0-10.0) White Blood Count 12.0 TH/MM3 (4.0-11.0) 14.0 TH/MM3 (4.0-11.0) Red Blood Count 3.44 MIL/MM3 (4.00-5.30) 3.26 MIL/MM3 (4.00-5.30) Hemoglobin 10.1 GM/DL (11.6-15.3) 10.0 GM/DL (11.6-15.3) Hematocrit 31.0 % (35.0-46.0) 29.3 % (35.0-46.0) Neutrophils (%) (Auto) 76.6 % (16.0-70.0) 79.5 % (16.0-70.0) Monocytes (%) (Auto) 9.3 % (0.0-8.0) Neutrophils # (Auto) 9.3 TH/MM3 (1.8-7.7) 11.1 TH/MM3 (1.8-7.7) Monocytes # (Auto) 1.1 TH/MM3 (0-0.9) Calcium Level 8.1 MG/DL (8.5-10.1) 8.1 MG/DL (8.5-10.1) Potassium Level 3.3 MEQ/L (3.5-5.1) 3.3 MEQ/L (3.5-5.1) Blood Urea Nitrogen 6 MG/DL (7-18) Imaging Last Impressions Chest X-Ray 11/21/17 0000 Signed Impressions: Service Date/Time: Tuesday, November 21, 2017 00:16 - CONCLUSION: Small pleural effusions and probable bibasilar atelectasis. Josh Awad MD Abdomen CT 11/20/17 0000 Signed Impressions: Service Date/Time: Tuesday, November 21, 2017 00:04 - CONCLUSION: 1. Siz inflammatory changes in the pancreas consistent with pancreatitis. 2. Bibasilar consolidation and small pleural effusions. 3. Status post cholecystectomy. Josh Awad MD Cholangiopancreatography MRI 11/17/17 0000 Signed Impressions: Service Date/Time: Friday, November 17, 2017 11:28 - CONCLUSION: Moderate biliary ductal dilatation and pancreatic ductal dilatation. Rashel Reyes MD Liver Ultrasound 11/16/17 0000 Signed Impressions: Service Date/Time: Thursday, November 16, 2017 10:37 - CONCLUSION: 1. Dilated main pancreatic duct measuring up to 9 mm. No obstructing mass is clearly seen on today's examination or the prior CT but the duct dilatation extends to the pancreatic head. Consider further evaluation for an occult mass in the pancreatic head once condition permits. Noninvasively this could be obtained with pancreas protocol MRI with and without intravenous contrast to include MRCP images. 2. Dilated common bile duct in this patient post cholecystectomy. The common duct does taper distally on the recent CT without a distal obstructing process identified. 3. There is trace perihepatic free fluid and a small left pleural effusion is visualized. Rashel Lopez MD Chest CT 11/16/17 0000 Signed Impressions: Service Date/Time: Thursday, November 16, 2017 11:33 - CONCLUSION: 1. Moderate severity atelectasis/consolidation at the dependent portions of lower lobes and right middle lobe. 2. Small pleural effusions. 3. Increased peripancreatic edema. Consistent with acute pancreatitis Rex Galeas MD Abdomen/Pelvis CT 11/14/17 1635 Signed Impressions: Service Date/Time: Tuesday, November 14, 2017 17:29 - CONCLUSION: Prominent common duct and pancreatic duct extending into the head of pancreas without focal mass. Correlation is suggested I do not see an etiology for the epigastric pain Moy Johnson MD FACR PE at Discharge GENERAL: This is a well-nourished, well-developed patient, in no apparent distress. CARDIOVASCULAR: Regular rate and rhythm without murmurs, gallops, or rubs. RESPIRATORY: Clear to auscultation. Breath sounds equal bilaterally. No wheezes , rales, or rhonchi. GASTROINTESTINAL: Abdomen soft, non-tender, nondistended. Normal active bowel sounds MUSCULOSKELETAL: Extremities without clubbing, cyanosis, or edema. NEURO: Alert & Oriented x4 to person, place, time, situation. Moves all ext x4 Pt update on day of discharge Patient seen today and evaluated patient in follow-up for pancreatitis, fever and volume overload. Responded well to Lasix with 5.6 L of urine output. Patient feels better. Fever resolved. Discharge plans discussed with patient who was agreeable Hospital Course This patient is a 67-year-old female with recurrent pancreatitis who was treated for the same and had recurrent fevers which were thought to be due to volume overload, atelectasis. Patient responded well to diuresis with IV Lasix. Patient was seen by infectious disease. Trial of antibiotics and a trial off of antibiotics were completed. Patient did well with instruction of incentive spirometry and pulmonary toilet. Pt Condition on Discharge: Good Discharge Disposition: Discharge Home Discharge Time: <= 30 minutes Discharge Instructions DIET: Follow Instructions for: As Tolerated, No Restrictions Activities you can perform: Regular-No Restrictions Follow up Referrals: PCP Follow-up - 1 Week New Medications: Nebulizer (Nebulizer) 1 Mis Mis EA .XX DIRECTED for Breathing Treatment, #1 0 Refills Oxycodone-Acetaminophen (Percocet) 5-325 mg Tab 1-2 TAB PO Q4H PRN for PAIN, #10 TAB 0 Refills Oxygen (O2) (Oxygen (O2)) Device LITER NICOLE.CANULA CONTINUOUS for Prevent Hypoxemia, #2 Oxygen Concentrator Portable Gaseous 2 L/min via Nasal Canula Continuous For 99 months [Albuterol-Ipratropium Neb] () 1 AMPULE NEBU 1 AMPULE NEB Q2HR NEB PRN for shortness of breath, #90 Continued Medications: Lorazepam (Ativan) 0.5 Mg Tab 0.5 MG PO Q8H PRN for ANXIETY AND/OR AGITATION, TAB 0 Refills Carly Montoya MD November 23, 2017 08:20
[2017-11-23] MEDS ORDERED: POTASSIUM CHLORIDE 10 MEQ CONTROLLED RELEASE TAB PO ONE (09:00)
[2017-11-23] MEDS: LACTOBACILLUS ACIDOPHILUS TAB PO SCH (09:14)
[2017-11-23] MEDS: DOCUSATE SODIUM 50 MG/SENNA 8.6 MG TAB PO SCH (09:16)
[2017-11-23] MEDS: SODIUM CHLORIDE 0.9% FLUSH 10 ML FLUSH IV FLUSH SCH (09:17)
== END 2017-11-23 12:01 | disposition home or self-care (01) | DRG 871 ==
LOC: PHED 15:35 → PHEDA 18:19 → PH3A 19:58
PROVIDERS: ADMIT Hospitalist; ATTEND Hospitalist
DX: A41.9 Sepsis, unspecified organism (principal); K85.90 Acute pancreatitis without necrosis or infection, unspecified; J90 Pleural effusion, not elsewhere classified; K31.5 Obstruction of duodenum; J18.9 Pneumonia, unspecified organism; J98.11 Atelectasis; I08.1 Rheumatic disorders of both mitral and tricuspid valves; R09.02 Hypoxemia; E87.70 Fluid overload, unspecified; K59.00 Constipation, unspecified; F41.9 Anxiety disorder, unspecified; Z88.0 Allergy status to penicillin; Z88.1 Allergy status to other antibiotic agents; Z88.5 Allergy status to narcotic agent
CPT/HCPCS: 71045; 71046; 71260; 74160; 74177; 74183; 76377; 76705; 76937; 80048; 80053; 80061; 80202; 81001; 82378; 82784; 82787; 83605; 83690; 84478; 84484; 85007; 85025; 85027; 85610; 85730; 86301; 87040; 87070; 87205; 87449; 87804; 93005; 93306; 94150; 94618; 94640; 94664; 94667; 94668; 96361; 96374; 96375; 96376; J0456; J0692; J0696; J1650; J1885; J1940; J2060; J2270; J2405; J3370; J3480; J7030; J7050; J7120; Q9963; Q9967